=== PATIENT | male | born 1955 | race Caucasian/White ===

== ENCOUNTER → 2022-06-25 12:30 | Outpatient (CLI) | payer MEDICARE, MEDICAID, SELFPAY ==
--- NOTE | 2022-06-25 | DI.ECHO.S_ITS ---
[place] [facility]---------+ [facility] +---------+ : : [address] : : : : [id number] : : : : Phone: [phone]+ Echocardiogram Report + + :Name: GABRIEL CHEEMA Study Date: 06/25/2022 Height: 69 in : :[facility] ReadingLocation: Weight: 235 lb : : Gender: Male BSA: 2.2 m2 : :: 1955 Age: 67 yrs BP: 123/89 mmHg: :Reason For Study: SYSTOLIC HEART FAILURE : :Ordering Physician: VKIAS, : :JAIME Performed By: Guerda Merchant : :Referring: JAIME TRAVIS : + + Interpretation Summary 1) Borderline enlarged left ventricle with moderately reduced systolic function (EF 30-35%). 2) Normal right ventricular size and function. 3) No significant valvular abnormalities. 4) The ascending aorta is mildly enlarged at 4.0cm 5) Sinus rhythm with heart rate 93-101bpm present during the study. 6) Compared to the Echo done 02/18/2022, LVEF has decreased from 40-45% to 30- 35% on this study. Procedure: A two-dimensional transthoracic echocardiogram with color flow and Doppler was performed. The study quality was technically adequate. There is no prior echocardiogram noted for this patient. The patient was in sinus tachycardia with heart rates between 93-101 bpm during the exam. Left Ventricle: The left ventricle is borderline dilated. The estimated left ventricular end diastolic volume is 108 ml. There is normal left ventricular wall thickness. The ejection fraction is estimated to be 30-35%. There is moderate global hypokinesis of the left ventricle. Right Ventricle: The right ventricle is normal in size and function. Atria: The left atrial size is normal. Right atrial size is normal. There is no Doppler evidence for an interatrial shunt. Mitral Valve: The mitral valve is normal in structure and function. There is trace mitral regurgitation. Aortic Valve: The aortic valve is trileaflet. The aortic valve opens well. There is no aortic valve stenosis. No aortic regurgitation is present. Tricuspid Valve: The tricuspid valve is normal in structure and function. There is trace tricuspid regurgitation. Pulmonic Valve: The pulmonic valve leaflets are thin and pliable; valve motion is normal. There is mild pulmonic regurgitation. Great Vessels: The aortic root is normal size. The ascending aorta is mildly enlarged. The IVC is of normal diameter and collapses greater than 50% with a sniff. This suggests a low right atrial pressure of 3 mm Hg. Pericardium/ Pleura There is no pericardial effusion. There is no pleural effusion. MMode/2D Measurements & Calculations LVIDd: 6.2 cm LVOT diam: 2.2 cm LVIDs: 4.7 cm Ao root diam: 3.7 cm FS: 23.5 % asc Aorta Diam: 4.0 cm IVSd: 0.60 cm Ao Arch Diam (Prox Trans): 3.2 cm LVPWd: 0.93 cm LV shannon. diameter/BSA (cm/m^2): 2.8 LV sys. diameter/BSA (cm/m^2): 2.1 LA A2 area: 21.7 cm2 RA long axis: 6.2 cm LA A4 area: 17.0 cm2 RA area: 20.2 cm2 LA length (vol): 5.5 cm RA vol: 56.3 ml LA vol: 56.5 ml RA : 25.5 ml/m2 LA vol index: 25.5 ml/m2 IVC diam: 1.4 cm RVD1 (basal): 3.5 cm RVD2 (mid): 2.9 cm TAPSE: 2.4 cm Doppler Measurements & Calculations Ao V2 max: 125.8 cm/sec LVOT Max Filiberto: 91.6 cm/sec Ao V2 mean: 98.3 cm/sec LV V1 max P.4 mmHg Ao max P.3 mmHg LV V1 VTI: 15.8 cm Ao mean P.1 mmHg THI(I,D): 2.7 cm2 Ao V2 VTI: 22.2 cm THI(V,D): 2.8 cm2 sev ratio: 0.71 THI indexed to BSA (cm^2/m^2): 1.2 MV E max filiberto: 102.0 cm/sec PA V2 max: 96.3 cm/sec MV A max filiberto: 2.5 cm/sec PA V2 mean: 70.1 cm/sec MV E/A: 41.0 PA mean P.1 mmHg MV dec time: 0.13 sec PA pr(Accel): 35.3 mmHg SV(LVOT): 60.3 ml Reading Physician:10:04 AM
== END ==
PROVIDERS: Family Provider Family Medicine; PCP Internal Medicine; Referring Provider Internal Medicine Cardiovascular Disease; Visit Provider Internal Medicine Cardiovascular Disease
DX: I37.1 Nonrheumatic pulmonary valve insufficiency (principal); I50.22 Chronic systolic (congestive) heart failure; I42.8 Other cardiomyopathies; I77.89 Other specified disorders of arteries and arterioles
CPT/HCPCS: 93306

== ENCOUNTER 2022-08-06 22:07 | Inpatient (IN) | payer MEDICARE, MEDICAID, SELFPAY ==
--- NOTE | 2022-08-06 22:15 | DI.RAD.S_ITS ---
PROCEDURE: XR CHEST 1V INDICATIONS: Dyspnea TECHNIQUE: One view of the chest was acquired. COMPARISON: [facility], , CHEST 2 VIEW, 10/01/2015, 13:42. FINDINGS: Surgical changes and devices: None. Lungs and pleura: There are low lung volumes. Bilateral perihilar pulmonary vascular prominence is demonstrated compatible with mild pulmonary edema. There are also bibasilar patchy opacities suggestive of atelectasis or consolidation. No pleural effusions or pneumothorax. Mediastinum: Mediastinal contours appear unchanged. Heart size is normal. Bones and chest wall: No suspicious bony lesions. Overlying soft tissues appear unremarkable. IMPRESSION: 1. Bilateral patchy opacities in the lung bases consistent with atelectasis or consolidation/pneumonia. 2. Suspected mild pulmonary edema. Dictated by: Matthias Wright M.D. on 08/06/2022 at 23:51 Approved by: Matthias Wright M.D. on 08/06/2022 at 23:54
--- NOTE | 2022-08-06 22:17 | ED_ITS ---
HPI - SOB/Dyspnea General Chief Complaint: Shortness of Breath/Dyspnea Stated Complaint: SOB Time Seen by Provider: 08/06/22 22:15 Source: patient and EMS Mode of arrival: EMS Limitations: no limitations History of Present Illness HPI Narrative: Patient brought in by ambulance from home. Complains of dyspnea for the past 1 week and worsened today. Patient is on 3 L continuous oxygen through the day. Patient takes albuterol nebulizing treatments at home. Not DuoNeb. Has been doing these at home without improvement. Denies any cough cold or congestion, however did have brief chest pain prior to arrival. Chest pain now resolved. It was substernal. He states similar to AL in the past.. No fever or chills. Has had pneumonia in the past. Patient has been taking his CHF medications. Has had some swelling of the legs. No pain. Patient received DuoNeb treatment by EMS and feels so much better now. His dyspnea has resolved. Patient is speaking full sentences. In no respiratory distress. Patient sees Dr. Travis with cardiology, affiliated with [facility] Related Data Allergies Allergy/AdvReac Type Severity Reaction Status Date / Time cephalexin [From KEFLEX] Allergy Unknown Unverified 10/28/17 12:36 Penicillins [PENICILLINS] Allergy Unknown Unverified 10/28/17 12:36 Review of Systems Review of Systems Narrative: GENERAL: negative chills, fatigue, malaise, fever, sweats. HEENT: negative sinus pain, ear pain, sore throat RESPIRATORY: Positive dyspnea, negative cough CARDIOVASCULAR: Positive chest pain, negative palpitations, positive peripheral edema GASTROINTESTINAL: negative nausea, vomiting, abdominal pain : negative dysuria, frequency, hematuria MUSCULOSKELETAL: negative muscle or bony pain SKIN: negative rash, skin lesions NEUROLOGIC: negative weakness, numbness ROS Unobtainable: All systems reviewed & are unremarkable except as noted in HPI and below Patient History Social History Smoking Status: Former smoker Exam Narrative Exam Narrative: GENERAL: in no distress, not toxic not dyspneic HEAD: Normocephalic. EYES: Pupils equal round No scleral icterus. ENT: Mucous membranes moist. NECK: Trachea midline. CARDIOVASCULAR: Regular rate and rhythm without murmurs RESPIRATORY: Clear to auscultation. Breath sounds equal bilaterally. No wheezes, rales, or rhonchi. Patient is speaking full sentences. Is on baseline nasal cannula 3 L GASTROINTESTINAL: Abdomen soft, non-tender EXTREMITIES: No gross deformities. There is 2+ bilateral leg and ankle/foot edema. No calf tenderness NEURO: AOx4. SKIN: Warm and dry PSYCH: Not anxious, is cooperative Initial Vital Signs Initial Vital Signs: Vital Signs Temperature 98.3 F 08/06/22 22:38 Pulse Rate 94 H 08/06/22 22:38 Respiratory Rate 20 08/06/22 22:38 Blood Pressure 131/86 08/06/22 22:38 Pulse Oximetry 98 08/06/22 22:38 Oxygen Delivery Method 08/06/22 22:38 Oxygen Flow Rate 3 08/06/22 22:38 Course Orders Ordered: ED Orders 08/06/22 22:15 XR chest 1V Stat EKG-12 Lead Stat 08/06/22 22:30 Covid-19 + FLU A/B + RSV - PCR Stat 08/06/22 23:22 Complete Blood Count AUTO DIFF Stat Comprehensive Metabolic Panel Stat NT-proBNP (BNP-Adult 18+) Stat Partial Thromboplastin Time Stat Prothrombin Time INR Stat Troponin & CK Cardiac Panel Stat 08/07/22 00:32 Blood Culture Stat Acetaminophen (Acetaminophen 325 Mg Tablet) 650 mg PO Q6H PRN PRN Reason: Fever/Mild Pain (1-3) Albuterol (Albuterol 2.5 Mg/3 Ml Neb (Adult)) 2.5 mg INH [id number] PRN PRN Reason: Shortness Of Breath Last Admin: 08/07/22 02:36 Dose: 2.5 mg Documented By: AIDA Albuterol/Ipratropium (Albuterol/Ipratropium 3 Ml Ampul) 3 ml INH [id number] LIDIA Atorvastatin Calcium (Atorvastatin 20 Mg Tablet) 40 mg PO BEDTIME LIDIA Bupropion HCl (Bupropion Xl 150 Mg Tab) 150 mg PO DAILY LIDIA Doxazosin Mesylate (Doxazosin 2 Mg Tablet) 2 mg PO BEDTIME LIDIA Enoxaparin Sodium (Enoxaparin 40 Mg/0.4 Ml Syringe) 40 mg SUBCUT DAILY LIDIA Famotidine (Famotidine 20 Mg Tablet) 20 mg PO DAILY PRN PRN Reason: acid reflux Last Admin: 08/07/22 02:35 Dose: 20 mg Documented By: CHAY Hydrochlorothiazide (Hydrochlorothiazide 25 Mg Tablet) 12.5 mg PO DAILY LIDIA Levofloxacin (Levofloxacin 250 Mg Tablet) 750 mg PO BEDTIME LIDIA Stop: 08/10/22 21:01 Magnesium Hydroxide (Magnesium Hydroxide 30 Ml Udc) 30 ml PO DAILY PRN PRN Reason: Constipation Methylprednisolone (Methylprednisolone 125 Mg/2 Ml Vial) 80 mg IV Q12H LIDIA Last Admin: 08/07/22 02:35 Dose: 80 mg Documented By: CHAY Naloxone HCl (Naloxone 0.4 Mg/Ml Vial) 0.2 mg IV Q2MIN PRN PRN Reason: Opiate Reversal Spironolactone (Spironolactone 25 Mg Tablet) 25 mg PO DAILY LIDIA Discontinued Medications Albuterol/Ipratropium (Albuterol/Ipratropium 3 Ml Ampul) 3 ml INH NOW ONE Stop: 08/07/22 00:57 Last Admin: 08/07/22 00:57 Dose: 3 ml Documented By: AIDA Levofloxacin (Levaquin) 750 mg in 150 mls @ 100 mls/hr IV NOW ONE Stop: 08/07/22 02:01 Last Infusion: 08/07/22 02:15 Dose: 0 mls/hr Documented By: Admin: 08/07/22 00:46 Dose: 100 mls/hr Documented By: VERENICE Vital Signs Vital signs: Vital Signs - 8 hr 08/06/22 22:38 08/06/22 23:55 08/07/22 00:00 Temperature 98.3 F Pulse Rate 94 H 94 H 94 H Respiratory Rate 20 22 22 Blood Pressure 131/86 119/72 119/74 Pulse Oximetry 98 96 96 Oxygen Delivery Method Nasal Cannula Nasal Cannula Nasal Cannula Oxygen Flow Rate 3 58 5 MDM - SOB/Dyspnea Lab Data Result diagrams: 08/06/22 23:22 08/06/22 23:22 Labs: Lab Results 08/06/22 08/06/22 08/06/22 Range/Units 22:30 23:22 23:22 WBC 9.6 (4.5-11.0) X10^3/uL RBC 4.01 L (4.5-5.9) X10^6/uL Hgb 12.9 L (13.5-17.5) g/dL Hct 37.9 L (41-53) % MCV 94.4 (80-100) fL MCH 32.1 (26-34) PG MCHC 34.0 (30-36) % RDW 13.4 (11.6-14.8) % Plt Count 259 (150-400) X10^3/uL Neut % (Auto) 78.1 H (50-75) % Lymph % (Auto) 11.0 L (25-40) % [place] % (Auto) 5.8 (3-14) % Eos % (Auto) 4.7 H (2-4) % Baso % (Auto) 0.4 (0-2) % Neut # (Auto) 7500 H (8766-8116) /uL Lymph # (Auto) 1100 (4002-3155) /uL [place] # (Auto) 600 (0-900) /uL Eos # (Auto) 500 H (0-450) /uL Baso # (Auto) 0 (0-100) /uL PT 14.0 H (10.1-12.7) SECONDS INR 1.2 (0.9-1.3) APTT 30 (26-36) SECONDS Sodium (137-145) mmol/L Potassium (3.4-5.1) mmol/L Chloride (98-107) mmol/L Carbon Dioxide (22-32) mmol/L BUN (9-20) mg/dL Creatinine (0.66-1.25) mg/dL Estimated GFR (>60) mL/min BUN/Creatinine Ratio (6-22) Glucose (80-110) mg/dL Hemoglobin A1c (4.0-6.0) % Calcium (8.4-10.2) mg/dL Total Bilirubin (0.2-1.3) mg/dL AST (17-59) IU/L ALT (<50) IU/L Alkaline Phosphatase (38-126) U/L Total Creatine Kinase (55-170) U/L CK-MB (CK-2) (<2.37) ng/mL CK-MB (CK-2) Rel Index (1.5-5.0) % Troponin I (0.01-0.034) ng/mL NT-Pro-B Natriuret Pep (<125) pg/mL Total Protein (6.3-8.2) g/dL SARS-CoV-2 (PCR) Negative (Negative) Influenza A (RT-PCR) Flu a negative (NEGATIVE) Influenza B (RT-PCR) Flu b negative (NEGATIVE) RSV (PCR) Negative (Negative) 08/06/22 08/06/22 08/06/22 Range/Units 23:22 23:22 23:22 WBC (4.5-11.0) X10^3/uL RBC (4.5-5.9) X10^6/uL Hgb (13.5-17.5) g/dL Hct (41-53) % MCV (80-100) fL MCH (26-34) PG MCHC (30-36) % RDW (11.6-14.8) % Plt Count (150-400) X10^3/uL Neut % (Auto) (50-75) % Lymph % (Auto) (25-40) % [place] % (Auto) (3-14) % Eos % (Auto) (2-4) % Baso % (Auto) (0-2) % Neut # (Auto) (6601-7044) /uL Lymph # (Auto) (7356-3982) /uL [place] # (Auto) (0-900) /uL Eos # (Auto) (0-450) /uL Baso # (Auto) (0-100) /uL PT (10.1-12.7) SECONDS INR (0.9-1.3) APTT (26-36) SECONDS Sodium 135 L (137-145) mmol/L Potassium 4.1 (3.4-5.1) mmol/L Chloride 98 (98-107) mmol/L Carbon Dioxide 29 (22-32) mmol/L BUN 22 H (9-20) mg/dL Creatinine 1.02 (0.66-1.25) mg/dL Estimated GFR > 60 (>60) mL/min BUN/Creatinine Ratio 21.6 (6-22) Glucose 118 H (80-110) mg/dL Hemoglobin A1c 5.7 (4.0-6.0) % Calcium 8.6 (8.4-10.2) mg/dL Total Bilirubin 0.4 (0.2-1.3) mg/dL AST 26 (17-59) IU/L ALT 30 (<50) IU/L Alkaline Phosphatase 61 (38-126) U/L Total Creatine Kinase 292 H (55-170) U/L CK-MB (CK-2) 5.85 H (<2.37) ng/mL CK-MB (CK-2) Rel Index 2.0 (1.5-5.0) % Troponin I < 0.012 (0.01-0.034) ng/mL NT-Pro-B Natriuret Pep 113 (<125) pg/mL Total Protein 7.3 (6.3-8.2) g/dL SARS-CoV-2 (PCR) (Negative) Influenza A (RT-PCR) (NEGATIVE) Influenza B (RT-PCR) (NEGATIVE) RSV (PCR) (Negative) Imaging Data Chest x-ray: Radiologist's Impression: [address] [address] XRay Report Signed Patient: Harmeet Woods MR#: [id number] : 1955 Acct:[id number] Age/Sex: 67 / M Date of Service: 08/06/22 Loc: ED Accession Number: [id number] ?? Procedure: XR chest 1V Ordering Provider: Brannon Urbina MD PROCEDURE:? XR CHEST 1V ? INDICATIONS:? Dyspnea ? TECHNIQUE:? One view of the chest was acquired.? ? COMPARISON:? [facility], , CHEST 2 VIEW, 10/01/2015, 13:42. ? FINDINGS:? ? Surgical changes and devices:? None.? ? Lungs and pleura:? There are low lung volumes.? Bilateral perihilar pulmonary vascular prominence is demonstrated compatible with mild pulmonary edema.? There are also bibasilar patchy opacities suggestive of atelectasis or consolidation.? No pleural effusions or pneumothorax.? ? Mediastinum:? Mediastinal contours appear unchanged.? Heart size is normal.? ? Bones and chest wall:? No suspicious bony lesions.? Overlying soft tissues appear unremarkable.? ? IMPRESSION:? ? 1. Bilateral patchy opacities in the lung bases consistent with atelectasis or consolidation/pneumonia. ? 2. Suspected mild pulmonary edema.? ? ? Dictated by: Matthias Wright M.D. on 08/06/2022 at 23:51 ? ? Approved by: Matthias Wright M.D. on 08/06/2022 at 23:54 ? ECG Data Interpretation: Normal sinus rhythm rate [address] elevation or depression Treatment and disposition Social Determinants of Health that impact treatment or disposition: None MDM Narrative Medical decision making narrative: After exam and evaluation and history, CBC CMP troponin BNP, chest x-ray and EKG have been ordered. Patient at baseline with breathing in no respiratory di stress, DuoNeb has resolved dyspnea, given by EMS. MDM CC: Dyspnea Complicating co-morbidities: COPD/CHF Data collected from: Patient and EMS Medical records reviewed: No previous visits here Differential considered: Includes but not limited to CHF/COPD/pneumonia/asthma Exam documented above, pertinent findings include: Currently clear lung sounds, there is bilateral pedal/calf/leg edema Lab Test results independently reviewed as above. Pertinent findings: Independently reviewed EKG as above Imaging studies independently reviewed: Bilateral patchy infiltrates versus atelectasis/possible consolidation Consultations: 12:35 a[address].. Sp[address] with hospice [address] arzola, will admit Treatments: Levaquin Re-evaluations: 12:30 a.m.. Reviewed results with patient. Patient still feels much better after EMS DuoNeb treatment. Patient does agree for admission for COPD exacerbation/community-acquired pneumonia. Currently no chest pain. Reviewed with him regarding chest pain. It could be related to the pneumonia/COPD exacerbation. However would admit for continued serial cardiac enzymes and possible echocardiogram in the morning Discussion: Appropriate for admission. Will need IV antibiotics and breathing treatments and possible echocardiogram. Will need serial cardiac enzymes. I did review with patient and agrees for admit. Reviewed with hospitalist agrees for admit as well. Diagnosis: COPD exacerbation/community-acquired pneumonia Disposition: Admit Discharge Plan Departure Patient Disposition: Admitted as Observation Clinical Impression: COPD exacerbation, Community acquired pneumonia Admit Date/Time: 08/07/22 00:35 Admit Provider: Rai Arzola
[2022-08-06 22:38] VITALS: BP 131/86; PULSE 94; RESP 20; TEMP 36.8; O2SAT 98; BMI 34.0
[2022-08-06 23:24] LABS: Influenza A - CEPHEID Flu A NEGATIVE (NEGATIVE); Influenza B - CEPHEID Flu B NEGATIVE (NEGATIVE); Respiratory Syncytial Virus Negative (Negative)
[2022-08-06 23:25] LABS: COVID-19 CEPHEID 4-PLEX PCR Negative (Negative)
[2022-08-06 23:39] LABS: INR 1.2 (0.9-1.3)
[2022-08-06 23:40] LABS: Add Manual Diff / Slide Review NO; Basophils Absolute Auto 0 /uL (0-100); Basophils Percent Auto 0.4 % (0-2); Eosinophils Absolute Auto 500 /uL (0-450); Eosinophils Percent Auto 4.7 % (2-4); Hematocrit 37.9 % (41-53); Hemoglobin 12.9 g/dL (13.5-17.5); Lymphocytes Absolute Auto 1100 /uL (1100-4500); Mean Corpuscular Hemoglobin 32.1 PG (26-34); Mean Corpuscular Volume 94.4 fL (80-100); Monocytes Absolute Auto 600 /uL (0-900); Monocytes Percent Auto 5.8 % (3-14); Neutrophils Absolute Auto 7500 /uL (1500-7000); Neutrophils Percent Auto 78.1 % (50-75); Platelet Count 259 X10^3/uL (150-400); Red Blood Cell Count 4.01 X10^6/uL (4.5-5.9); Red Cell Distribution Width 13.4 % (11.6-14.8); White Blood Cell Count 9.6 X10^3/uL (4.5-11.0)
[2022-08-06 23:42] LABS: PTT Partial Thromboplastin Tim 30 SECONDS (26-36)
[2022-08-06 23:55] VITALS: BP 119/72; PULSE 94; RESP 22; O2SAT 96
[2022-08-06 23:56] LABS: Alanine Aminotransferase 30 IU/L (<50); Alkaline Phosphatase 61 U/L (38-126); Aspartate Aminotransferase 26 IU/L (17-59); BUN Creatinine Ratio 21.6 (6-22); Bilirubin Total 0.4 mg/dL (0.2-1.3); Blood Urea Nitrogen 22 mg/dL (9-20); Calcium 8.6 mg/dL (8.4-10.2); Carbon Dioxide 29 mmol/L (22-32); Chloride 98 mmol/L (98-107); Creatine Kinase 292 U/L (55-170); Estimated Glomerular Filt Rate > 60 mL/min (>60); Glucose 118 mg/dL (80-110); HEMOLYSIS < 15 (0-50); Potassium 4.1 mmol/L (3.4-5.1); Sodium 135 mmol/L (137-145); Total Protein 7.3 g/dL (6.3-8.2)
[2022-08-07] VITALS (14 sets, daily range): BP systolic 116–153; BP diastolic 73–98; PULSE 82–107; RESP 20–26; TEMP 36.1–36.3; O2SAT 92–96; BMI 34.0
[2022-08-07 00:05] LABS: NT-proBNP (BNP-Adult 18+) 113 pg/mL (<125)
[2022-08-07 00:08] LABS: Troponin I < 0.012 ng/mL (0.01-0.034)
[2022-08-07 00:11] LABS: Creatine Kinase MB 5.85 ng/mL (<2.37)
[2022-08-07] MEDS: levoFLOXacin 750 MG/150 ML PIGGYBACK 100 MG IV (00:46)
[2022-08-07] MEDS: ALBUTEROL/IPRATROPIUM 3 ML AMPUL INH ×6 (00:57→23:30)
--- NOTE | 2022-08-07 01:28 | P.HP_ITS ---
History of Present Illness History of Present Illness Date Patient Seen: 08/07/22 Time Patient Seen: 00:45 Chief complaint: SOB Narrative: Patient is a 67-year-old male with history of COPD, on chronic home O2, CHF with reduced EF, hypertension, hyperlipidemia, obesity, BPH presented to ED with complaints of shortness of breath for the past 1-2 weeks. He reports increasing dyspnea where he is out of breath at rest and with exertion. He has had a productive cough. He denies fever. He had some chest tightness prior to coming into the ED. he is usually on 2 L O2 during the day and 4 L during the night but 2 weeks ago he increase the daytime O2 to 4 L as well. He states that he has been using nebulizer more frequently as well. Patient sees Dr. Travis for Cardiology. He had echo 06/25/2022 which showed mild enlarged LV, EF 30-35%, normal RV and normal valves. He was recently taken off of irbesartan and started on Entresto and Corlanor. He has noticed a little swelling in the legs since this medication change. He is not on any loop diuretics. States he has been compliant with medications. He last quit smoking in May 2022 with previous 1 pack per day for many years. In ED, vitals were stable with O2 sat 96% on 5 L NC. He has normal WBC and a normal BNP. Chest x-ray personally reviewed and shows bilateral atelectasis versus infiltrate in lung bases and possibly mild pulmonary edema. EKG personally reviewed and shows normal sinus rhythm, possibly old inferior CO, no ST or T-wave abnormality. His COVID, flu and RSV are all negative. Patient History Family & Social History Safety & Behavioral: Feels Safe in Current Yes Environment Been Physically Hurt or No Threatened By a Person Tobacco & Substance use: Smoking Status Former smoker Substance Use Type does not use Meds Home Medications and Allergies Allergies Allergy/AdvReac Type Severity Reaction Status Date / Time cephalexin [From KEFLEX] Allergy Unknown Unverified 10/28/17 12:36 Penicillins [PENICILLINS] Allergy Unknown Unverified 10/28/17 12:36 Review of Systems Review of Systems Narrative: Complete 10 point ROS otherwise negative Exam Vital Signs (past 8 hours): - 08/06/22 22:38 08/06/22 23:55 08/07/22 00:00 Temperature 98.3 F Pulse Rate 94 H 94 H 94 H Respiratory Rate 20 22 22 Blood Pressure 131/86 119/72 119/74 Pulse Oximetry 98 96 96 Oxygen Delivery Method Nasal Cannula Nasal Cannula Nasal Cannula Oxygen Flow Rate 3 58 5 Fraction of Inspired Oxygen 08/07/22 00:57 Temperature Pulse Rate 91 H Respiratory Rate 22 Blood Pressure Pulse Oximetry 96 Oxygen Delivery Method Nasal Cannula Oxygen Flow Rate 5 Fraction of Inspired Oxygen 40 Fraction of Inspired Oxygen 40 SaO2/FiO2 Ratio 240 Oxygen Delivery Method Nasal Cannula Oxygen Flow Rate 5 Narrative Exam Narrative: General: Very pleasant alert male sitting up in ED bed with mild labored breathing HEENT: Pupils equal, anicteric, oropharynx unremarkable Neck: No lymphadenopathy Lungs: Able to speak full sentences, there is bilateral inspiratory and expiratory wheeze Heart: Normal S1 and S2, regular rate and rhythm, no murmur, gallop or rub Abdomen: Central obesity, nondistended, nontender, no HSM Extremities: Trace pretibial edema bilaterally Neurological: Affect normal, speech and thought content normal Objective Labs Result Diagrams: 08/06/22 23:22 08/06/22 23:22 Labs: Laboratory Results - last 24 hr 08/06/22 08/06/22 08/06/22 22:30 23:22 23:22 WBC 9.6 RBC 4.01 L Hgb 12.9 L Hct 37.9 L MCV 94.4 MCH 32.1 MCHC 34.0 RDW 13.4 Plt Count 259 Neut % (Auto) 78.1 H Lymph % (Auto) 11.0 L [place] % (Auto) 5.8 Eos % (Auto) 4.7 H Baso % (Auto) 0.4 Neut # (Auto) 7500 H Lymph # (Auto) 1100 [place] # (Auto) 600 Eos # (Auto) 500 H Baso # (Auto) 0 PT 14.0 H INR 1.2 APTT 30 Sodium Potassium Chloride Carbon Dioxide BUN Creatinine Estimated GFR BUN/Creatinine Ratio Glucose Calcium Total Bilirubin AST ALT Alkaline Phosphatase Total Creatine Kinase CK-MB (CK-2) CK-MB (CK-2) Rel Index Troponin I NT-Pro-B Natriuret Pep Total Protein SARS-CoV-2 (PCR) Negative Influenza A (RT-PCR) Flu a negative Influenza B (RT-PCR) Flu b negative RSV (PCR) Negative 08/06/22 08/06/22 23:22 23:22 WBC RBC Hgb Hct MCV MCH MCHC RDW Plt Count Neut % (Auto) Lymph % (Auto) [place] % (Auto) Eos % (Auto) Baso % (Auto) Neut # (Auto) Lymph # (Auto) [place] # (Auto) Eos # (Auto) Baso # (Auto) PT INR APTT Sodium 135 L Potassium 4.1 Chloride 98 Carbon Dioxide 29 BUN 22 H Creatinine 1.02 Estimated GFR > 60 BUN/Creatinine Ratio 21.6 Glucose 118 H Calcium 8.6 Total Bilirubin 0.4 AST 26 ALT 30 Alkaline Phosphatase 61 Total Creatine Kinase 292 H CK-MB (CK-2) 5.85 H CK-MB (CK-2) Rel Index 2.0 Troponin I < 0.012 NT-Pro-B Natriuret Pep 113 Total Protein 7.3 SARS-CoV-2 (PCR) Influenza A (RT-PCR) Influenza B (RT-PCR) RSV (PCR) Assessment & Plan Assessment & Plan narrative: 1. COPD with exacerbation, chronic hypoxic respiratory failure -presents with dyspnea x2 weeks, wheezing on exam -chest x-ray with possible pneumonia versus atelectasis in bases -Solu-Medrol 80 mg IV b.i.d. -DuoNeb q.i.d., albuterol neb as needed -Levaquin 750 mg q.d. x 5 days -Mucinex 1200 mg b.i.d. per home routine -continue O2 to maintain sat > 90% -patient used to take Symbicort 160-4.5 which he stopped due to recurrent thrush but feels he did better while on that inhaler which we can refill on discharge 2. Possible pneumonia -has productive cough, possible infiltrates on chest x-ray though normal WBC -covered with Levaquin as for COPD 3. Heart failure with reduced EF, without exacerbation -patient with a normal BNP, hilar fullness on chest x-ray not definitive for pulmonary edema, has trace edema in LEs since started on Entresto and Corlanor but overall clinical presentation more typical of COPD -patient has not required loop diuretic therapy at home, sees Dr. Travis for cardiology -recent echo 06/25/2022 showed EF 30-35%, repeat echo at this time not indicated -continue on Entresto, Corlanor, HCTZ, nebivolol, spironolactone and rosuvastatin per home routine 4. BPH -continue doxazosin 2 mg HS per home routine Code status: Full code verified with patient DVT prophylaxis: Enoxaparin Surrogate decision maker: Vladimir Woods, patient's brother Time Spent With Patient Critical Care time: I spent a total of [] minutes of critical care time on this patient's care today; this time is exclusive of procedural time.
[2022-08-07] MEDS: methylPREDNISolone 125 MG/2 ML VIAL 80 MG IV ×2 (02:35→14:15)
[2022-08-07] MEDS: FAMOTIDINE 20 MG TABLET PO (02:35)
[2022-08-07] MEDS: ALBUTEROL 2.5 MG/3 ML NEB (ADULT) INH (02:36)
[2022-08-07 02:41] LABS: Hemoglobin A1C% w Est Avg Glu 5.7 % (4.0-6.0)
[2022-08-07] MEDS: buPROPion XL 150 MG TAB PO (09:21)
[2022-08-07] MEDS: ENOXAPARIN 40 MG/0.4 ML SYRINGE SUBCUT (09:22)
[2022-08-07] MEDS: hydroCHLOROthiazide 25 MG TABLET 12.5 MG PO (09:23)
[2022-08-07] MEDS: SPIRONOLACTONE 25 MG TABLET PO (09:24)
[2022-08-07] MEDS: ACETAMINOPHEN 325 MG TABLET 650 MG PO (09:53)
--- NOTE | 2022-08-07 19:50 | RT ---
Pt asleep at this time. Will attempt administration of scheduled nebs when the pt wakes up.
[2022-08-07] MEDS: BUDESONIDE 0.5 MG/2 ML NEB INH (20:20)
[2022-08-07] MEDS: SACUBITRIL VALSARTAN 1 EACH PO (21:01)
[2022-08-07] MEDS: ATORVASTATIN 20 MG TABLET 40 MG PO (21:02)
[2022-08-07] MEDS: levoFLOXacin 250 MG TABLET 750 MG PO (21:02)
[2022-08-07] MEDS: DOXAZOSIN 2 MG TABLET PO (21:02)
[2022-08-07] MEDS: IVABRADINE 5 MG 5 EACH PO (21:02)
[2022-08-08] VITALS (19 sets, daily range): BP systolic 128–148; BP diastolic 69–84; PULSE 75–107; RESP 18–26; TEMP 36.4–36.8; O2SAT 88–93
[2022-08-08] MEDS: ACETAMINOPHEN 325 MG TABLET 650 MG PO (00:16)
[2022-08-08] MEDS: ALBUTEROL 2.5 MG/3 ML NEB (ADULT) INH (04:13)
[2022-08-08] MEDS: methylPREDNISolone 125 MG/2 ML VIAL 80 MG IV ×2 (05:11→17:09)
[2022-08-08] MEDS: FAMOTIDINE 20 MG TABLET PO (05:11)
[2022-08-08] MEDS: IVABRADINE 5 MG 5 EACH PO ×2 (08:20→21:27)
[2022-08-08] MEDS: ENOXAPARIN 40 MG/0.4 ML SYRINGE SUBCUT (08:20)
[2022-08-08] MEDS: NEBIVOLOL 20 MG 20 EACH PO (08:20)
[2022-08-08] MEDS: SACUBITRIL VALSARTAN 1 EACH PO ×2 (08:20→21:27)
[2022-08-08] MEDS: buPROPion XL 150 MG TAB PO (08:21)
[2022-08-08] MEDS: hydroCHLOROthiazide 25 MG TABLET 12.5 MG PO (08:21)
[2022-08-08] MEDS: SPIRONOLACTONE 25 MG TABLET PO (08:21)
[2022-08-08] MEDS: ALBUTEROL/IPRATROPIUM 3 ML AMPUL INH ×5 (08:47→23:02)
[2022-08-08] MEDS: BUDESONIDE 0.5 MG/2 ML NEB INH ×2 (08:47→19:10)
--- NOTE | 2022-08-08 14:51 | CM.DANOTE ---
Initial DCP Assessment Note Pt is a 67 yo male , resident of [place], arrives w/persistent SOB, history of COPD, on chronic home O2, CHF with reduced EF, hypertension, hyperlipidemia, obesity, BPH PCP: Brannon Hollins and Dagoberto Frances Payer: [facility]/KADIE Reviewed chart, pt discussed in multidisciplinary rounds this morning. Patient expected to discharge home in the next 24-48 hrs depending on improvement of COPD exac w/suspected pneumonia, hx CHF Plan: Anticipate patient will return home upon discharge, close outpatient f/u, transportation TBD KELSIE Pope Discharge Planning/Care Management CM Discharge Assessment Start: 08/08/22 14:43 Freq: Status: Active Protocol: Document 08/08/22 14:43 ABRAHAN (Rec: 08/08/22 14:51 ABRAHAN [id number]) Discharge Planning Assessment Assigned Heel Packer KELSIE Strong DPOA/Assigned Designee Name lamar Seayer Contact Information [phone] Advance Directives? No History Provided By Patient,Medical Record Prior Living Arrangements House Comment Trlr Household Members none Type of transporation used prior to Drives own vehicle admit Independent with ADL's Yes Is patient alert and oriented? Yes Community Services used prior to Oxygen Therapy admission: Comment O2 throughout the day and night Barriers to Discharge No Comment Anticipate home w/resumption of home O2 and close outpatient f/u Discharge Plan Home Transportation Arrangement Self or family Referrals Initiated None needed
--- NOTE | 2022-08-08 16:07 | PM.PN.1 ---
Subjective Subjective Date Patient Seen: 08/08/22 Interval history: This is a 67-year-old male with a past medical history of COPD admitted with acute on chronic respiratory failure secondary to COPD exacerbation. He normally is anywhere between 2 and 4 L at home, but often less than this. Today is of oxygen at rest and continues to feel somewhat improved but certainly decline from his baseline as far as his dyspnea and dyspnea on exertion. He denies cough, chest pain, abdominal pain, nausea, or vomiting today. Exam Vital Signs (past 8 hours): - 08/08/22 09:00 08/08/22 09:34 08/08/22 11:55 Temperature Pulse Rate 101 H 78 Respiratory Rate 22 22 Blood Pressure Pulse Oximetry 93 90 L 90 L Oxygen Delivery Method Nasal Cannula Nasal Cannula Nasal Cannula Oxygen Flow Rate 4 4 4 Fraction of Inspired Oxygen 36 36 08/08/22 14:00 08/08/22 13:00 08/08/22 15:23 Temperature 98.1 F Pulse Rate 93 H 85 Respiratory Rate 18 20 Blood Pressure 128/74 Pulse Oximetry 92 91 92 Oxygen Delivery Method Nasal Cannula Nasal Cannula Oxygen Flow Rate 4 4 4 Fraction of Inspired Oxygen 36 Fraction of Inspired Oxygen 36 SaO2/FiO2 Ratio 255 Oxygen Delivery Method Nasal Cannula Oxygen Flow Rate 4 Narrative Exam Narrative: General: Very pleasant alert male sitting up hospital bed, no acute distress HEENT: Pupils equal, anicteric, oropharynx unremarkable Neck: No lymphadenopathy Lungs: Able to speak full sentences, there is bilateral inspiratory and expiratory wheeze Heart: Normal S1 and S2, regular rate and rhythm, no murmur, gallop or rub Abdomen: Central obesity, nondistended, nontender, no HSM Extremities: Trace pretibial edema bilaterally, no joint effusions Neurological: Affect normal, speech and thought content normal Objective Labs Result Diagrams: 08/06/22 23:22 08/06/22 23:22 [facility] Social History household members: none Smoking Status: Former smoker Assessment & Plan Assessment & Plan narrative: 1. COPD with exacerbation, acute on chronic hypoxic respiratory failure with possible community acquired pneumonia -presents with dyspnea x2 weeks, wheezing on exam -chest x-ray with possible pneumonia versus atelectasis in bases -Solu-Medrol 80 mg IV b.i.d. -DuoNeb q.i.d., albuterol neb as needed -Levaquin 750 mg q.d. x 5 days -Mucinex 1200 mg b.i.d. per home routine -continue O2 to maintain sat > 89% -patient used to take Symbicort 160-4.5 which he stopped due to recurrent thrush but feels he did better while on that inhaler which we can refill on discharge 2. Possible pneumonia -has productive cough, possible infiltrates on chest x-ray though normal WBC -covered with Levaquin as for COPD 3. Heart failure with reduced EF, without exacerbation -patient with a normal BNP, hilar fullness on chest x-ray not definitive for pulmonary edema, has trace edema in LEs since started on Entresto and Corlanor but overall clinical presentation more typical of COPD -patient has not required loop diuretic therapy at home, sees Dr. Travis for cardiology -recent echo 06/25/2022 showed EF 30-35%, repeat echo at this time not indicated -continue on Entresto, Corlanor, HCTZ, nebivolol, spironolactone and rosuvastatin per home routine 4. BPH -continue doxazosin 2 mg HS per home routine Code status: Full code verified with patient DVT prophylaxis: Enoxaparin Surrogate decision maker: Vladimir Woods, patient's brother Time Spent With Patient Critical Care time: I spent a total of [] minutes of critical care time on this patient's care today; this time is exclusive of procedural time.
[2022-08-08 16:24] LABS: Albumin 4.1 g/dL (3.5-5.0); Albumin Globulin Ratio 1.3 (1.0-2.8); Globulin 3.2 g/dL (1.7-4.1)
[2022-08-08] MEDS: levoFLOXacin 250 MG TABLET 750 MG PO (21:22)
[2022-08-08] MEDS: ATORVASTATIN 20 MG TABLET 40 MG PO (21:22)
[2022-08-08] MEDS: DOXAZOSIN 2 MG TABLET PO (21:22)
[2022-08-09] VITALS (18 sets, daily range): BP systolic 103–130; BP diastolic 70–86; PULSE 68–99; RESP 18–24; TEMP 35.9–36.6; O2SAT 4–98
[2022-08-09] MEDS: ALBUTEROL 2.5 MG/3 ML NEB (ADULT) INH (01:53)
[2022-08-09] MEDS: FAMOTIDINE 20 MG TABLET PO ×3 (02:10→20:35)
[2022-08-09] MEDS: methylPREDNISolone 125 MG/2 ML VIAL 80 MG IV ×2 (05:38→17:04)
[2022-08-09 05:52] LABS: Add Manual Diff / Slide Review NO; Basophils Absolute Auto 0 /uL (0-100); Eosinophils Absolute Auto 0 /uL (0-450); Hematocrit 38.5 % (41-53); Hemoglobin 12.8 g/dL (13.5-17.5); Lymphocytes Absolute Auto 800 /uL (1100-4500); Lymphocytes Percent Auto 6.4 % (25-40); Mean Corpuscular HGB Conc 33.3 % (30-36); Mean Corpuscular Hemoglobin 31.5 PG (26-34); Mean Corpuscular Volume 94.7 fL (80-100); Monocytes Absolute Auto 900 /uL (0-900); Monocytes Percent Auto 7.3 % (3-14); Neutrophils Absolute Auto 10500 /uL (1500-7000); Neutrophils Percent Auto 86.3 % (50-75); Platelet Count 275 X10^3/uL (150-400); Red Blood Cell Count 4.07 X10^6/uL (4.5-5.9); Red Cell Distribution Width 13.4 % (11.6-14.8); White Blood Cell Count 12.2 X10^3/uL (4.5-11.0)
[2022-08-09 06:08] LABS: BUN Creatinine Ratio 38.8 (6-22); Blood Urea Nitrogen 33 mg/dL (9-20); Calcium 8.2 mg/dL (8.4-10.2); Carbon Dioxide 31 mmol/L (22-32); Chloride 92 mmol/L (98-107); Estimated Glomerular Filt Rate > 60 mL/min (>60); Glucose 115 mg/dL (80-110); HEMOLYSIS < 15 (0-50); Magnesium 2.1 mg/dL (1.6-2.3); Potassium 4.3 mmol/L (3.4-5.1); Sodium 130 mmol/L (137-145)
[2022-08-09] MEDS: SPIRONOLACTONE 25 MG TABLET PO (09:02)
[2022-08-09] MEDS: NEBIVOLOL 20 MG 20 EACH PO (09:02)
[2022-08-09] MEDS: SACUBITRIL VALSARTAN 1 EACH PO ×2 (09:02→21:33)
[2022-08-09] MEDS: hydroCHLOROthiazide 25 MG TABLET 12.5 MG PO (09:02)
[2022-08-09] MEDS: IVABRADINE 5 MG 5 EACH PO ×2 (09:02→21:33)
[2022-08-09] MEDS: ENOXAPARIN 40 MG/0.4 ML SYRINGE SUBCUT (09:03)
[2022-08-09] MEDS: buPROPion XL 150 MG TAB PO (09:04)
[2022-08-09] MEDS: ACETAMINOPHEN 325 MG TABLET 650 MG PO (09:08)
[2022-08-09] MEDS: ALBUTEROL/IPRATROPIUM 3 ML AMPUL INH ×3 (09:10→17:01)
[2022-08-09] MEDS: BUDESONIDE 0.5 MG/2 ML NEB INH ×2 (09:10→19:59)
--- NOTE | 2022-08-09 12:09 | P.PN_ITS ---
Subjective Subjective Date Patient Seen: 08/09/22 Interval history: This is a 67-year-old male with a past medical history of COPD admitted with acute on chronic respiratory failure secondary to COPD exacerbation. He normally is anywhere between 2 and 4 L at home, but often less than this. Today is on 2-3 L oxygen at rest and continues to feel somewhat improved but certainly declined from his baseline as far as his dyspnea and dyspnea on exertion. He denies cough, chest pain, abdominal pain, nausea, or vomiting today. he does feel some congestion in his chest. Exam Vital Signs (past 8 hours): - 08/09/22 05:00 08/09/22 07:00 08/09/22 09:10 Temperature 96.7 F L Pulse Rate 84 92 H Respiratory Rate 19 22 Blood Pressure 119/71 Pulse Oximetry 90 L 92 91 Oxygen Delivery Method Nasal Cannula Nasal Cannula Oxygen Flow Rate 3 3 2 08/09/22 10:04 08/09/22 10:04 Temperature Pulse Rate Respiratory Rate Blood Pressure Pulse Oximetry 89 L Oxygen Delivery Method Nasal Cannula Nasal Cannula Oxygen Flow Rate 3 Fraction of Inspired Oxygen 36 SaO2/FiO2 Ratio 255 Oxygen Delivery Method Nasal Cannula Oxygen Flow Rate 3 Narrative Exam Narrative: General: Very pleasant alert male sitting up hospital bed, no acute distress HEENT: Pupils equal, anicteric, oropharynx unremarkable Neck: No lymphadenopathy Lungs: Able to speak full sentences, there is bilateral inspiratory and expiratory wheeze Heart: Normal S1 and S2, regular rate and rhythm, no murmur, gallop or rub Abdomen: Central obesity, nondistended, nontender, no HSM Extremities: Trace pretibial edema bilaterally, no joint effusions Neurological: Affect normal, speech and thought content normal Objective Labs Result Diagrams: 08/09/22 04:50 08/09/22 04:50 Labs: Laboratory Results - last 24 hr 08/06/22 08/09/22 08/09/22 23:22 04:50 04:50 WBC 12.2 H RBC 4.07 L Hgb 12.8 L Hct 38.5 L MCV 94.7 MCH 31.5 MCHC 33.3 RDW 13.4 Plt Count 275 Neut % (Auto) 86.3 H Lymph % (Auto) 6.4 L [place] % (Auto) 7.3 Eos % (Auto) 0.0 L Baso % (Auto) 0.0 Neut # (Auto) 59086 H Lymph # (Auto) 800 L [place] # (Auto) 900 Eos # (Auto) 0 Baso # (Auto) 0 Sodium 130 L Potassium 4.3 Chloride 92 L Carbon Dioxide 31 BUN 33 H Creatinine 0.85 Estimated GFR > 60 BUN/Creatinine Ratio 38.8 H Glucose 115 H Calcium 8.2 L Magnesium 2.1 Albumin 4.1 Globulin 3.2 Albumin/Globulin Ratio 1.3 [facility] Social History household members: none Smoking Status: Former smoker Assessment & Plan Assessment & Plan narrative: 1. COPD with exacerbation, acute on chronic hypoxic respiratory failure with possible community acquired pneumonia -presents with dyspnea x2 weeks, wheezing on exam -chest x-ray with possible pneumonia versus atelectasis in bases -Solu-Medrol 80 mg IV b.i.d., start to taper tomorrow. -DuoNeb q.i.d., albuterol neb as needed -Levaquin 750 mg q.d. x 5 days -Mucinex 1200 mg b.i.d. per home routine -continue O2 to maintain sat > 89% -patient used to take Symbicort 160-4.5 which he stopped due to recurrent thrush but feels he did better while on that inhaler which we can refill on discharge 2. Possible pneumonia -has productive cough, possible infiltrates on chest x-ray though normal WBC -covered with Levaquin as for COPD 3. Heart failure with reduced EF, without exacerbation -patient with a normal BNP, hilar fullness on chest x-ray not definitive for pulmonary edema, has trace edema in LEs since started on Entresto and Corlanor but overall clinical presentation more typical of COPD -patient has not required loop diuretic therapy at home, sees Dr. Travis for cardiology -recent echo 06/25/2022 showed EF 30-35%, repeat echo at this time not indicated -continue on Entresto, Corlanor, HCTZ, nebivolol, spironolactone and rosuvastatin per home routine 4. BPH -continue doxazosin 2 mg HS per home routine Code status: Full code verified with patient DVT prophylaxis: Enoxaparin Surrogate decision maker: Vladimir Woods, patient's brother Time Spent With Patient Critical Care time: I spent a total of [] minutes of critical care time on this patient's care today; this time is exclusive of procedural time.
[2022-08-09] MEDS: guaiFENesin ER 600 MG TAB 1200 MG PO ×2 (12:23→21:32)
--- NOTE | 2022-08-09 14:39 | CM.DPNOTE ---
DCP Note Met w/patient to review DCP. 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 Discussed HH RN and patient feels this would be helpful to him. Patient lives in [place]; reviewed MCR choice list to include [facility] and [facility], patient has no agency preference Placed call to [facility] to discuss referral, spoke w/Kay. faxed referral to include demo sheet, H+P, prog note, completed F2F and HH order Plan: DC home expected w/in 24 hrs, family to transport, [facility] RN, resumption of home O2 JW
[2022-08-09] MEDS: ATORVASTATIN 20 MG TABLET 40 MG PO (21:32)
[2022-08-09] MEDS: levoFLOXacin 250 MG TABLET 750 MG PO (21:32)
[2022-08-09] MEDS: DOXAZOSIN 2 MG TABLET PO (21:32)
[2022-08-09] MEDS: SODIUM CHLORIDE 0.9% FLUSH 10 ML IV (21:34)
[2022-08-10] VITALS (15 sets, daily range): BP systolic 124–133; BP diastolic 78–88; PULSE 74–89; RESP 16–20; TEMP 36.1–36.4; O2SAT 90–95
[2022-08-10] MEDS: ALBUTEROL/IPRATROPIUM 3 ML AMPUL INH ×6 (00:27→23:19)
[2022-08-10] MEDS: ALBUTEROL 2.5 MG/3 ML NEB (ADULT) INH (03:23)
[2022-08-10] MEDS: methylPREDNISolone 125 MG/2 ML VIAL 80 MG IV (05:19)
[2022-08-10 05:56] LABS: Add Manual Diff / Slide Review NO; Basophils Absolute Auto 0 /uL (0-100); Basophils Percent Auto 0.1 % (0-2); Eosinophils Absolute Auto 0 /uL (0-450); Hematocrit 37.4 % (41-53); Hemoglobin 12.8 g/dL (13.5-17.5); Lymphocytes Absolute Auto 800 /uL (1100-4500); Lymphocytes Percent Auto 8.1 % (25-40); Mean Corpuscular HGB Conc 34.3 % (30-36); Mean Corpuscular Hemoglobin 32.1 PG (26-34); Mean Corpuscular Volume 93.7 fL (80-100); Monocytes Absolute Auto 700 /uL (0-900); Monocytes Percent Auto 6.9 % (3-14); Neutrophils Absolute Auto 8800 /uL (1500-7000); Neutrophils Percent Auto 84.9 % (50-75); Platelet Count 249 X10^3/uL (150-400); Red Blood Cell Count 3.99 X10^6/uL (4.5-5.9); Red Cell Distribution Width 13.6 % (11.6-14.8); White Blood Cell Count 10.4 X10^3/uL (4.5-11.0)
[2022-08-10 06:04] LABS: BUN Creatinine Ratio 39.5 (6-22); Blood Urea Nitrogen 30 mg/dL (9-20); Carbon Dioxide 29 mmol/L (22-32); Chloride 94 mmol/L (98-107); Estimated Glomerular Filt Rate > 60 mL/min (>60); Glucose 111 mg/dL (80-110); HEMOLYSIS < 15 (0-50); Magnesium 2.2 mg/dL (1.6-2.3); Sodium 132 mmol/L (137-145)
[2022-08-10] MEDS: BUDESONIDE 0.5 MG/2 ML NEB INH ×2 (07:27→19:24)
[2022-08-10] MEDS: ACETAMINOPHEN 325 MG TABLET 650 MG PO (07:56)
[2022-08-10] MEDS: hydroCHLOROthiazide 25 MG TABLET 12.5 MG PO (08:00)
[2022-08-10] MEDS: SACUBITRIL VALSARTAN 1 EACH PO ×2 (08:01→20:41)
[2022-08-10] MEDS: buPROPion XL 150 MG TAB PO (08:01)
[2022-08-10] MEDS: IVABRADINE 5 MG 5 EACH PO ×2 (08:01→20:41)
[2022-08-10] MEDS: guaiFENesin ER 600 MG TAB 1200 MG PO ×2 (08:01→20:40)
[2022-08-10] MEDS: ENOXAPARIN 40 MG/0.4 ML SYRINGE SUBCUT (08:01)
[2022-08-10] MEDS: NEBIVOLOL 20 MG 20 EACH PO (08:01)
[2022-08-10] MEDS: SPIRONOLACTONE 25 MG TABLET PO (08:01)
[2022-08-10] MEDS: SODIUM CHLORIDE 0.9% FLUSH 10 ML IV ×2 (08:02→17:05)
--- NOTE | 2022-08-10 12:11 | PM.PN.1 ---
Subjective Subjective Date Patient Seen: 08/10/22 Interval history: This is a 67-year-old male with a past medical history of COPD admitted with acute on chronic respiratory failure secondary to COPD exacerbation.? He normally is anywhere between 2 and 4 L at home, but often less than this. Today is 2 liters/minute at rest however when becomes active, even with increasing to 4 liters/minute the patient's O2 saturation often dips down to the mid 80s. Also having problems at night with the crease O2 saturation. Chest does not feel normal yet per patient. Exam Vital Signs (past 8 hours): - 08/10/22 06:00 08/10/22 07:29 08/10/22 07:44 Temperature Pulse Rate Respiratory Rate Blood Pressure Pulse Oximetry 90 L 91 Oxygen Delivery Method Nasal Cannula Room Air Nasal Cannula Oxygen Flow Rate 2 2 08/10/22 07:00 08/10/22 10:24 08/10/22 11:38 Temperature 97.1 F L Pulse Rate 83 85 Respiratory Rate 20 18 Blood Pressure 133/82 Pulse Oximetry 94 92 95 Oxygen Delivery Method Nasal Cannula Nasal Cannula Oxygen Flow Rate 3 2 2 Fraction of Inspired Oxygen 36 SaO2/FiO2 Ratio 255 Oxygen Delivery Method Nasal Cannula Oxygen Flow Rate 2 Narrative Exam Narrative: General:? Very pleasant alert male sitting up hospital bed, no acute distress HEENT:? Pupils equal, anicteric, oropharynx unremarkable Neck:? No lymphadenopathy Lungs:? Able to speak full sentences, there is bilateral inspiratory and expiratory wheeze throughout the lung [place]. Heart:? Normal S1 and S2, regular rate and rhythm, no murmur, gallop or rub Abdomen:? Central obesity, nondistended, nontender, no HSM Extremities:? Trace edema bilaterally, no joint effusions Neurological:? Affect normal, speech and thought content normal Objective Labs Result Diagrams: 08/10/22 05:19 08/10/22 05:19 Labs: Laboratory Results - last 24 hr 08/10/22 08/10/22 05:19 05:19 WBC 10.4 RBC 3.99 L Hgb 12.8 L Hct 37.4 L MCV 93.7 MCH 32.1 MCHC 34.3 RDW 13.6 Plt Count 249 Neut % (Auto) 84.9 H Lymph % (Auto) 8.1 L [place] % (Auto) 6.9 Eos % (Auto) 0.0 L Baso % (Auto) 0.1 Neut # (Auto) 8800 H Lymph # (Auto) 800 L [place] # (Auto) 700 Eos # (Auto) 0 Baso # (Auto) 0 Sodium 132 L Potassium 4.0 Chloride 94 L Carbon Dioxide 29 BUN 30 H Creatinine 0.76 Estimated GFR > 60 BUN/Creatinine Ratio 39.5 H Glucose 111 H Calcium 8.0 L Magnesium 2.2 PFSH Social History household members: none Smoking Status: Former smoker Assessment & Plan Assessment & Plan narrative: 1. COPD with exacerbation, acute on chronic hypoxic respiratory failure with possible community acquired pneumonia -presents with dyspnea x2 weeks, wheezing on exam -chest x-ray with possible pneumonia versus atelectasis in bases -Solu-Medrol 80 mg IV b.i.d., start to taper, will decrease to Solu-Medrol 60 mg IV b.i.d. today. -DuoNeb q.i.d., albuterol neb as needed -Levaquin 750 mg q.d. x 5 days -Mucinex 1200 mg b.i.d. per home routine -continue O2 to maintain sat > 89% -patient used to take Symbicort 160-4.5 which he stopped due to recurrent thrush but feels he did better while on that inhaler which we can refill on discharge 2. Possible pneumonia -has productive cough, possible infiltrates on chest x-ray though normal WBC -covered with Levaquin as for COPD 3. Heart failure with reduced EF, without exacerbation -patient with a normal BNP, hilar fullness on chest x-ray not definitive for pulmonary edema, has trace edema in LEs since started on Entresto and Corlanor but overall clinical presentation more typical of COPD -patient has not required loop diuretic therapy at home, sees Dr. Travis for cardiology -recent echo 06/25/2022 showed EF 30-35%, repeat echo at this time not indicated -continue on Entresto, Corlanor, HCTZ, nebivolol, spironolactone and rosuvastatin per home routine 4. BPH -continue doxazosin 2 mg HS per home routine 5. Elevated BUN consistent with dehydration. Provide intravenous fluids to help hydrate. Follow labs and clinically. Code status: Full code verified with patient DVT prophylaxis:? Enoxaparin Surrogate decision maker:? Vladimir Woods, patient's brother Time Spent With Patient Critical Care time: I spent a total of [] minutes of critical care time on this patient's care today; this time is exclusive of procedural time.
--- NOTE | 2022-08-10 12:26 | CM.DPC ---
DCP/Continued: Reviewed chart. Per provider patient medically not stable to discharge today. Patient currently weaning off of IV steriods. INCLUSION INTERN placed call to [facility] to noitify them that patient will not be discharging today spoke with Sayra and she confirms that they have everything they need except d/c summary. P: D/C summary to be faxed to [facility] at [phone]. KELSIE Arango
[2022-08-10] MEDS: SODIUM CHLORIDE 0.9% 1,000 ML 84 ML IV (12:50)
[2022-08-10] MEDS: FAMOTIDINE 20 MG TABLET PO (13:21)
[2022-08-10] MEDS: MAG HYDROX/ALUM/SIMETH 30 ML UDC PO (13:33)
[2022-08-10] MEDS: methylPREDNISolone 125 MG/2 ML VIAL 60 MG IV (17:03)
[2022-08-10] MEDS: levoFLOXacin 250 MG TABLET 750 MG PO (20:37)
[2022-08-10] MEDS: DOXAZOSIN 2 MG TABLET PO (20:38)
[2022-08-10] MEDS: ATORVASTATIN 20 MG TABLET 40 MG PO (20:40)
[2022-08-11] VITALS (14 sets, daily range): BP systolic 113–147; BP diastolic 72–94; PULSE 76–95; RESP 18–20; TEMP 36–36.5; O2SAT 91–97
[2022-08-11] MEDS: SODIUM CHLORIDE 0.9% 1,000 ML 84 ML IV (00:38)
[2022-08-11] MEDS: MAG HYDROX/ALUM/SIMETH 30 ML UDC PO ×3 (00:45→20:19)
[2022-08-11] MEDS: ALBUTEROL 2.5 MG/3 ML NEB (ADULT) INH (04:23)
[2022-08-11] MEDS: methylPREDNISolone 125 MG/2 ML VIAL 60 MG IV (05:23)
[2022-08-11 05:45] LABS: Add Manual Diff / Slide Review NO; Basophils Absolute Auto 0 /uL (0-100); Basophils Percent Auto 0.1 % (0-2); Eosinophils Absolute Auto 0 /uL (0-450); Hematocrit 36.5 % (41-53); Hemoglobin 12.4 g/dL (13.5-17.5); Lymphocytes Absolute Auto 1100 /uL (1100-4500); Mean Corpuscular Volume 94.2 fL (80-100); Monocytes Absolute Auto 1000 /uL (0-900); Monocytes Percent Auto 9.1 % (3-14); Neutrophils Absolute Auto 8700 /uL (1500-7000); Neutrophils Percent Auto 80.8 % (50-75); Platelet Count 249 X10^3/uL (150-400); Red Blood Cell Count 3.87 X10^6/uL (4.5-5.9); Red Cell Distribution Width 13.4 % (11.6-14.8); White Blood Cell Count 10.8 X10^3/uL (4.5-11.0)
[2022-08-11 06:01] LABS: BUN Creatinine Ratio 38.7 (6-22); Blood Urea Nitrogen 29 mg/dL (9-20); Calcium 7.9 mg/dL (8.4-10.2); Carbon Dioxide 29 mmol/L (22-32); Chloride 95 mmol/L (98-107); Estimated Glomerular Filt Rate > 60 mL/min (>60); Glucose 108 mg/dL (80-110); HEMOLYSIS < 15 (0-50); Magnesium 2.4 mg/dL (1.6-2.3); Potassium 4.1 mmol/L (3.4-5.1); Sodium 131 mmol/L (137-145)
[2022-08-11] MEDS: ALBUTEROL/IPRATROPIUM 3 ML AMPUL INH ×5 (07:34→22:59)
[2022-08-11] MEDS: BUDESONIDE 0.5 MG/2 ML NEB INH ×2 (07:34→19:31)
[2022-08-11] MEDS: ACETAMINOPHEN 325 MG TABLET 650 MG PO (08:02)
[2022-08-11] MEDS: buPROPion XL 150 MG TAB PO (09:12)
[2022-08-11] MEDS: guaiFENesin ER 600 MG TAB 1200 MG PO ×2 (09:12→20:18)
[2022-08-11] MEDS: ENOXAPARIN 40 MG/0.4 ML SYRINGE SUBCUT (09:12)
[2022-08-11] MEDS: hydroCHLOROthiazide 25 MG TABLET 12.5 MG PO (09:13)
[2022-08-11] MEDS: SPIRONOLACTONE 25 MG TABLET PO (09:13)
[2022-08-11] MEDS: SODIUM CHLORIDE 0.9% FLUSH 10 ML IV ×2 (09:14→20:16)
[2022-08-11] MEDS: NEBIVOLOL 20 MG 20 EACH PO (09:17)
[2022-08-11] MEDS: IVABRADINE 5 MG 5 EACH PO (09:17)
[2022-08-11] MEDS: SACUBITRIL VALSARTAN 1 EACH PO (09:19)
--- NOTE | 2022-08-11 12:56 | PM.CN ---
History of Present Illness Consult details Date Patient Seen: 08/11/22 Time Patient Seen: 12:56 Chief complaint: SOB Narrative: This is a 67-year-old male with a past medical history of HFrEF, HTN, HLD obesity, BPH, COPD admitted with acute on chronic respiratory failure secondary to COPD exacerbation.? Patient normally uses 2-1/2 L during the day and 4 L at night, he has had multiple pulmonary function testing, has albuterol nebulizer and Spiriva at home. At the time of admit the patient was requiring 5-6 L and was unable to catch his breath and failed home interventions. He was initially started on Levaquin for possible pneumonia, patient has not demonstrated a white count He currently is resting in bed states that his shortness of breath is now at baseline, on 2 L, he no longer feels much chest congestion, patient converses easily coughs only once during exam, only mild left foot nonpitting edema noted, he reports his cough is improved, he is producing less sputum, and overall feels ready to be discharged home. Patient notes that he had been smoking for 45 years and quit July 21, 2022. He denies chest pain, abdominal pain, nausea, fever, body aches, chills or vomiting today. Meds Home Medications and Allergies Home Medications Medication Instructions Recorded Confirmed Type albuterol sulfate 2.5 mg/3 mL 08/07/22 08/07/22 History (0.083 %) solution for nebulization albuterol sulfate 90 mcg/actuation 08/07/22 08/07/22 History aerosol inhaler aspirin 81 mg capsule 81 mg PO DAILY 08/07/22 08/07/22 History budesonide-formoterol HFA 160 2 puff inhalation BID 08/07/22 08/07/22 History mcg-4.5 mcg/actuation aerosol inhaler bupropion HCl 150 mg 24 hr tablet, 150 mg PO DAILY 08/07/22 08/07/22 History extended release doxazosin 2 mg tablet 2 mg PO BEDTIME 08/07/22 08/07/22 History famotidine 20 mg tablet 20 mg PO BEDTIME PRN Heartburn 08/07/22 08/07/22 History fluticasone propionate 50 1 spray intranasal BID 08/07/22 08/07/22 History mcg/actuation nasal spray,suspension guaifenesin 1,200 mg tablet, 1,200 mg PO BID 08/07/22 08/07/22 History extended release 12 hr hydrochlorothiazide 12.5 mg tablet 12.5 mg PO DAILY 08/07/22 08/07/22 History ivabradine 5 mg tablet (Corlanor) 5 mg PO BID 08/07/22 08/07/22 History nebivolol 20 mg tablet 20 mg PO DAILY 08/07/22 08/07/22 History rosuvastatin 10 mg tablet 10 mg PO DAILY 08/07/22 08/07/22 History sacubitril 24 mg-valsartan 26 mg 1 tab PO BID 08/07/22 08/07/22 History tablet (Entresto) spironolactone 25 mg tablet 25 mg PO DAILY 08/07/22 08/07/22 History tiotropium bromide 18 mcg capsule See Rx Instructions .Route 08/07/22 08/09/22 History with inhalation device (Spiriva .COMPLEX PRN Bronchospasm with HandiHaler) Allergies Allergy/AdvReac Type Severity Reaction Status Date / Time cephalexin [From KEFLEX] Allergy Intermediate Hives Verified 08/08/22 15:39 Penicillins [PENICILLINS] Allergy Intermediate Hives Verified 08/08/22 15:39 Review of Systems Review of Systems Narrative: All 12 point systems reviewed with the patient and are negative except otherwise documented. Exam Vital Signs (past 8 hours): - 08/11/22 05:32 08/11/22 07:37 08/11/22 08:43 Temperature 96.8 F L Pulse Rate 79 Respiratory Rate 20 Blood Pressure 147/94 H Pulse Oximetry 92 92 94 Oxygen Delivery Method Nasal Cannula Nasal Cannula Oxygen Flow Rate 2 2.5 2 Fraction of Inspired Oxygen 08/11/22 07:00 08/11/22 10:32 Temperature Pulse Rate 95 H Respiratory Rate 20 Blood Pressure Pulse Oximetry 91 Oxygen Delivery Method Nasal Cannula Nasal Cannula Oxygen Flow Rate 3 Fraction of Inspired Oxygen 32 Fraction of Inspired Oxygen 32 SaO2/FiO2 Ratio 284 Oxygen Delivery Method Nasal Cannula Oxygen Flow Rate 3 Narrative Exam Narrative: Very pleasant alert male sitting up resting comfortably in bed, without labored breathing, or distress HEENT:? Pupils equal, anicteric, oropharynx unremarkable Neck:? No lymphadenopathy Lungs:? Able to speak full sentences, there is bilateral inspiratory and expiratory wheeze throughout all lobes, equal with slightly decreased bases Heart:? Normal S1 and S2, regular rate and rhythm, no murmur, gallop or rub Abdomen:? Central obesity, nondistended, nontender, no HSM Extremities:? Trace left foot edema, pedal pulses intact Neurological:? Affect normal, speech and thought content normal Objective Labs Result Diagrams: 08/11/22 05:08 08/11/22 05:08 Labs: Laboratory Results - last 24 hr 08/11/22 08/11/22 05:08 05:08 WBC 10.8 RBC 3.87 L Hgb 12.4 L Hct 36.5 L MCV 94.2 MCH 32.0 MCHC 34.0 RDW 13.4 Plt Count 249 Neut % (Auto) 80.8 H Lymph % (Auto) 10.0 L [place] % (Auto) 9.1 Eos % (Auto) 0.0 L Baso % (Auto) 0.1 Neut # (Auto) 8700 H Lymph # (Auto) 1100 [place] # (Auto) 1000 H Eos # (Auto) 0 Baso # (Auto) 0 Sodium 131 L Potassium 4.1 Chloride 95 L Carbon Dioxide 29 BUN 29 H Creatinine 0.75 Estimated GFR > 60 BUN/Creatinine Ratio 38.7 H Glucose 108 Calcium 7.9 L Magnesium 2.4 H PFSH Medical History (Updated 08/11/22 @ 13:37 [facility] Acute and chronic respiratory failure ([id number]) COPD (chronic obstructive pulmonary disease) HFrEF (heart failure with reduced ejection fraction) HLD (hyperlipidemia) Obesity Tobacco abuse, in remission Social History household members: none Tobacco & Substance Use Smoking Status: Former smoker Assessment & Plan Assessment & Plan narrative: 1. COPD with exacerbation, with acute on chronic hypoxic respiratory failure, present on admission-resolved -patient did ambulation trial with RN pulse ox >88% on 3 L nasal cannula, patient tolerated well with mild dyspnea patient's baseline-expect that patient can be discharged tomorrow. -patient's cough has generally resolved, states that his shortness of breath is returned to baseline, no edema or fluid overload noted, patient is speaking in complete in full sentences without shortness of breath or cough -have stopped IV Solu-Medrol (5days) as he has been on it less than 12 days does not require taper- switch him to prednisone 60 mg oral tomorrow-provide discharge prescription of 40 mg for 3 additional days. -ordered PT/OT evaluation for discharge -DuoNeb q.i.d., albuterol neb as needed -Completed -Levaquin 750 mg q.d. x 5 days -Mucinex 1200 mg b.i.d. 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 -do not find patient to have pneumonia, blood cultures negative, no sputum cultures were collected white cell count remains normal, we will repeat labs in a.m.-has also completed Levaquin treatment. 2. Heart failure with reduced EF, without exacerbation, chronic, present on admission -patient with a normal BNP, hilar fullness on chest x-ray not definitive for pulmonary edema, has trace edema in LEs since started on Entresto and Corlanor but overall clinical presentation more typical of COPD -patient has not required loop diuretic therapy at home, sees Dr. Travis for cardiology -recent echo 06/25/2022 showed EF 30-35%, repeat echo at this time not indicated -continue on Entresto, Corlanor, HCTZ, nebivolol, spironolactone and rosuvastatin per home routine 3. Hypertension, essential, chronic, present on admission -continue Entresto, Corlanor, HCTZ, nebivolol, spironolactone 4. BPH -continue doxazosin 2 mg HS per home routine 5. Hyperlipidemia, chronic, present on admission -continue rosuvastatin 6. obesity, mild, acute on chronic, present on admission -is evidence by BMI of 34.7 -dietary consult ordered regarding nutritional education and information for dietary, lifestyle, exercise, and weight changes. -the patient is at much higher risk for medical and surgical complications due to obesity as it relates to chronic illnesses:, and acute illness. The patient's obesity increases the difficulty and complexity of medical and/or surgical interventions, management and increases the chances of poor outcome such as morbidity and mortality as well as impaired wound healing. Patient's obesity also will impact oxygenation COPD exacerbation and heart failure. Code status: Full code verified with patient DVT prophylaxis:? Enoxaparin Surrogate decision maker:? Vladimir Woods, patient's brother Time Spent With Patient Critical Care time: I spent a total of [] minutes of critical care time on this patient's care today; this time is exclusive of procedural time.
--- NOTE | 2022-08-11 15:08 | PT.IIE ---
Current Diagnoses Chronic obstructive pulmonary disease with (acute) exacerbation (08/07/22) Medical History (Last Updated 08/11/22 @ 13:37 by TORRES Rodríguez) Acute and chronic respiratory failure (ddmkd-ga-iscgydm) COPD (chronic obstructive pulmonary disease) HFrEF (heart failure with reduced ejection fraction) HLD (hyperlipidemia) Obesity Tobacco abuse, in remission Physical Therapy Inpatient Evaluation/Re-Eval M1 PT/OT-IP Prior Functional Status Start: 08/11/22 13:30 Freq: NEEDED Status: Active Protocol: Document 08/11/22 15:08 AW (Rec: 08/11/22 15:51 AW [id number]) Medical Review Prior Functional Status Medical History Reviewed Yes Communication WNL. Pt is an effective verbal communicator. Mobility and Gait Independent for household distances. Pt is able to walk short outdoor distances to get to his car or pepper picker his mail. He uses supplemental O2 ~2-3 L/min during the day with occasional increase to 4L. Pt denies falls in the past year . Activities of Daily Living and IADL's Independent. Pt drives. Social History Household Members none Living Arrangements Mobile home Number of Floors (Floors) One Floor Number of Stairs To Enter/Railing? 2 OLEG no rail Home Environment Standard Height Toilet,Tub/ Shower Home Equipment Shower Seat with Backrest Employment Status Retired Additional Social History Comment Pt lives alone in [place]. He worked at [employer] for nearly 20 years but left his job during early COVID pandemic. He has a supportive brother, Vladimir. M2 PT-IP Current Condition Start: 08/11/22 13:30 Freq: NEEDED Status: Active Protocol: Document 08/11/22 15:08 AW (Rec: 08/11/22 15:51 AW [id number]) Physical Therapy Current Condition Current Condition Evaluation Date 08/11/22 Treatment Diagnosis COPD exacerbation; difficulty in walking Onset Date 08/06/22 M3 PT-IP Subjective Start: 08/11/22 13:30 Freq: NEEDED Status: Active Protocol: Document 08/11/22 15:08 AW (Rec: 08/11/22 15:51 AW [id number]) Subjective Physical Therapy Visit Type Type Initial Evaluation Visit Start Time 14:48 Visit Stop Time 15:08 Total Visit Minutes 20 Physical Therapy Visit Comments Patient Comments Pt is willing to participate with PT Patient Goals Pt hopes to return home at discharge. Therapy Pain Assessment Pain When Pain Assessed During Mobility Pain Present Pain Present Denied Pain M4 PT-IP Mobility and Gait Start: 08/11/22 13:30 Freq: NEEDED Status: Active Protocol: Document 08/11/22 15:08 AW (Rec: 08/11/22 15:51 AW [id number]) PT-Bed Mobility Assessment Supine to Sit Supine to Sit Standby Assistance PT-Transfer Assessment Sit to and From Stand Sit to and from Stand Standby Assistance,Use of Upper Extremities Equipment Transfer Assistive Device None Orthotic/Prosthetic Devices or Brace: No Transfers Transfer Destination Bed,Chair Transfer Technique Stand Step Pivot Transfer Ability Level of Assist Standby Assistance Comments Mobility Comments Pt was lying in bed as PT arrived. SpO2 on 2L/min via NC was 94%. Pt sat up on the left side of the bed SBA as PT transferred his O2 line to portable tank. He typically uses a wearable tank. Pt stood and walked in the halls a total of 150 feet SBA. Initially, he pushed the O2 tank but then walked without external support the remaining 120 feet. On 3-4 L/min, SpO2 was stable 89-91% including during and after stair climbing. Pt returned to the room and transferred to the chair. He then transferred to sitting EOB where pt was left with call light in reach. Gait Assessment Gait Gait Assistance Required: Standby Assistance Distance (Feet) 150 Assistive Devices Assistive Device None Orthotic/Prosthetic Devices or Brace: No Gait Deviations General Gait Pattern Decreased Stride Length, Decreased Feet Clearance Factors Limiting Gait Function Factors Limiting Gait Function Decreased Activity Tolerance, Respiratory Distress Comments Gait Comments Pt walked SBA with and without external support of O2 tank. No overt LOB observed. Stair Climbing Assessment Evaluation Level of Assist On Stairs Standby Assistance Devices Stair Climbing Assistive Devices None Technique/Endurance Stair Climbing Direction Ascend and Descend Stair Climbing Technique Step Over Step Number of Steps Climbed 3 Query Text: Stair Climbing Set # Repetitions (reps) 2 Comments Stair Climbing Comments SpO2 stable 89-91% during and after stair climbing PT-Balance Assessment Sitting Balance and Reactions Static Sitting Balance Ability Normal Dynamic Sitting Balance Ability Normal Standing Balance and Reactions Static Standing Balance Ability Normal Dynamic Standing Balance Ability Good Device Used no AD M5 PT-IP Objective Assessments Start: 08/11/22 13:30 Freq: NEEDED Status: Active Protocol: Document 08/11/22 15:08 AW (Rec: 08/11/22 15:51 AW [id number]) Orientation Orientation/Cognition Level of Alertness Alert Orientation Name,Day of Week,Place, Situation Language Function Ability No Deficits Noted Safety Awareness Understands Safety Issues Memory Description No Deficits Noted Gross Range of Motion Lower Extremity ROM Assessment Within Functional Limits Strength Lower Extremity Strength Assessment Within Functional Limits Hip 4/5 - 4+/5 Knee 5/5 Ankle 5/5 DF; PF 4+/5 in sitting Sensation Assessment Sensation Gross Sensation WNL M6 PT-IP Treatment Start: 08/11/22 13:30 Freq: NEEDED Status: Active Protocol: Document 08/11/22 15:08 AW (Rec: 08/11/22 15:51 AW [id number]) Physical Therapy Treatment Education Education Provided Safety M7 PT-IP Assessment and Plan Start: 08/11/22 13:30 Freq: NEEDED Status: Active Protocol: Document 08/11/22 15:08 AW (Rec: 08/11/22 15:51 AW [id number]) PT Summary Assessment and Plan Potential Rehabilitation Potential Good Status of Condition at Evaluation Stable Summary Impairments Activity Tolerance Assessment Summary Harmeet is a 67 yo man admitted with COPD exacerbation. PLOF: Pt is independent with household mobility and short community distances without AD . He uses 2-4L/min O2 during the day at baseline. He denies history of falls. CLOF: Pt is able to ambulate 150 feet and complete stair climbing on 3- 4 L/min O2 with SpO2 stable at 89-91%. He has no overt LOB during gait and does not have significant strength deficits. Pt states he was able to quit smoking with assist from accupuncture late last year. PT recommends outpatient pulmonary rehab. Pertaining to mobility, pt is safe to discharge home. No further acute PT needs are identified. Frequency of Treatment Frequency Of Treatment Discharge Discharge Recommendations Other Discharge Recommendations pulmonary rehab Transportation Needs at Discharge Private Vehicle
[2022-08-11] MEDS: DOXAZOSIN 2 MG TABLET PO (20:17)
[2022-08-11] MEDS: ATORVASTATIN 20 MG TABLET 40 MG PO (20:18)
[2022-08-12 02:00] VITALS: O2SAT 96
[2022-08-12 05:49] VITALS: PULSE 88; RESP 22; O2SAT 94
[2022-08-12] MEDS: ALBUTEROL/IPRATROPIUM 3 ML AMPUL INH ×2 (05:49→11:38)
[2022-08-12 06:49] LABS: Add Manual Diff / Slide Review NO; Basophils Absolute Auto 0 /uL (0-100); Eosinophils Absolute Auto 100 /uL (0-450); Eosinophils Percent Auto 0.8 % (2-4); Hematocrit 39.4 % (41-53); Hemoglobin 13.2 g/dL (13.5-17.5); Lymphocytes Absolute Auto 2200 /uL (1100-4500); Lymphocytes Percent Auto 19.1 % (25-40); Mean Corpuscular HGB Conc 33.4 % (30-36); Mean Corpuscular Hemoglobin 31.7 PG (26-34); Monocytes Absolute Auto 1000 /uL (0-900); Monocytes Percent Auto 9.2 % (3-14); Neutrophils Absolute Auto 8100 /uL (1500-7000); Neutrophils Percent Auto 70.9 % (50-75); Platelet Count 253 X10^3/uL (150-400); Red Blood Cell Count 4.15 X10^6/uL (4.5-5.9); Red Cell Distribution Width 13.7 % (11.6-14.8); White Blood Cell Count 11.4 X10^3/uL (4.5-11.0)
[2022-08-12 06:57] LABS: Procalcitonin 0.06 ng/mL (<0.5)
[2022-08-12] MEDS: MAG HYDROX/ALUM/SIMETH 30 ML UDC PO (07:00)
[2022-08-12 08:00] VITALS: BP 131/84; PULSE 81; RESP 18; TEMP 35.9; O2SAT 91
[2022-08-12] MEDS: SPIRONOLACTONE 25 MG TABLET PO (08:28)
[2022-08-12] MEDS: predniSONE 20 MG TABLET 60 MG PO (08:28)
[2022-08-12] MEDS: hydroCHLOROthiazide 25 MG TABLET 12.5 MG PO (08:28)
[2022-08-12] MEDS: ENOXAPARIN 40 MG/0.4 ML SYRINGE SUBCUT (08:29)
[2022-08-12] MEDS: guaiFENesin ER 600 MG TAB 1200 MG PO (08:29)
[2022-08-12] MEDS: NEBIVOLOL 20 MG 20 EACH PO (08:29)
[2022-08-12] MEDS: IVABRADINE 5 MG 5 EACH PO (08:30)
[2022-08-12] MEDS: SODIUM CHLORIDE 0.9% FLUSH 10 ML IV (08:30)
[2022-08-12] MEDS: FAMOTIDINE 20 MG TABLET PO (08:33)
[2022-08-12] MEDS: buPROPion XL 150 MG TAB PO (08:34)
[2022-08-12] MEDS: SACUBITRIL VALSARTAN 1 EACH PO (08:35)
--- NOTE | 2022-08-12 09:23 | OT.IP.TRT ---
Current Diagnoses Chronic obstructive pulmonary disease with (acute) exacerbation (08/07/22) Occupational Therapy Treatment Note M3 OT- IP Subjective and Pain Start: 08/12/22 09:28 Freq: Status: Active Protocol: Document 08/12/22 09:15 [facility] (Rec: 08/12/22 09:32 [facility] [id number]) OT- Subjective Occupational Therapy Visit Type Type Treatment Note Visit Start Time 09:15 Visit Stop Time 09:23 Occupational Therapy Visit Comments Patient Comments Pt states looking to go home today and agreed to talk to OT regarding OT needs. Patient/Caregiver Goals TO go home. M4 OT- IP ADL's Start: 08/12/22 09:28 Freq: Status: Active Protocol: Document 08/12/22 09:15 [facility] (Rec: 08/12/22 09:32 [facility] [id number]) OT [id number] Comments OT Self-Feeding Comments Independent OT ADL-Grooming Comments OT Grooming Comments Pt states has been independent . OT ADL-Oral Care Comments Oral Care Comments Pt states has been able to do on his own. OT ADL-Dressing Comments OT Dressing Comments Pt states just takes increased time to perform. Educated pt on possible use of dressing equipment to help conserve energy. OT ADL-Bathing Comments OT Bathing Comments Pt states uses a shower chair at this time. Suggested to have grab bar for safety to help get in and out of the shower. M6 OT- IP Functional Cognition Start: 08/12/22 09:28 Freq: Status: Active Protocol: Document 08/12/22 09:15 [facility] (Rec: 08/12/22 09:32 [facility] [id number]) Cognitive Factors Limiting Selfcare Function Cognitive Ability Level of Alertness Alert Patient Orientation Name,Place,Situation Ability to Follow Commands Able to Follow Multi-Step Commands Cognitive Comments Cognitive Assessment Comments Pt appears intact. M9 OT- IP Assessment and Plan Start: 08/12/22 09:28 Freq: Status: Active Pt states to have a friend stay with his a few days at home. Able to go over energy conservation strategies with the pt, suggested to have a grab bar for the shower, and look into getting 4ww as would assist the pt with holding his O2 concentrator and not have to rely on waiting for a cart to be close by to use so able to get into the store. Pt states that he is content at his set-up now and state will just be careful. No further OT needs at this time. Pt to look at going home with a friend today. Protocol: Document 08/12/22 09:15 [facility] (Rec: 08/12/22 09:32 [facility] [id number]) OT Summary Assessment and Plan Frequency of Treatment Frequency Of Treatment Discharge Discharge Recommendations Home Equipment Needs grab bar, 4ww Transportation Needs at Discharge Private Vehicle
--- NOTE | 2022-08-12 09:40 | PM.DS.1 ---
History of Present Illness History of Present Illness Date Patient Seen: 08/12/22 Chief complaint: SOB Narrative: Patient is a 67-year-old male with history of COPD, on chronic home O2, CHF with reduced EF, hypertension, hyperlipidemia, obesity, BPH who presented to ED with complaints of shortness of breath for the previous 1-2 weeks.? He reported increasing dyspnea where he is out of breath at rest and with exertion.? He had a productive cough.? He denied fever.? He had some chest tightness prior to coming into the ED. he is usually on 2 L O2 during the day and 4 L during the night but in the 2 weeks prior to presentation, he increased the daytime O2 to 4 L. Discharge Providers Provider Date of admission: 08/07/22 00:35 Discharge Date: 08/12/22 Primary care physician: Brannon Hollins MD Consults: 08/09/22 14:50 Consult to Home Health Routine Comment: Reason For Exam: Home Health RN upon discharge 08/11/22 13:22 Consult to Discharge Planning Routine Comment: eval to go home Consult to Occupational Therapy Evaluate & Treat Comment: eval to go home Physician Instructions: Evaluate and treat Consult to Physical Therapy Evaluate & Treat Comment: eval to go home Physician Instructions: Evaluate and Treat 08/11/22 13:33 Consult to Dietitian, Adult Routine Comment: Reason For Exam: BMI 34.7 Discharge provider: Nery Snider MD Summary Hospital Course Discharge Diagnosis: Acute and chronic respiratory failure (mgfzp-eq-rwfyeaf) COPD exacerbation Concern for pneumonia Benign prostatic hypertrophy COPD (chronic obstructive pulmonary disease) HFrEF (heart failure with reduced ejection fraction) HLD (hyperlipidemia) Obesity Tobacco abuse in the past, in remission Hospital Course: Patient presented with a COPD exacerbation that had been increasing over the 2 weeks prior to presentation. There was also concern for possible early pneumonia with infiltrates appearing on chest x-ray. Patient has underlying congestive heart failure but there was no exacerbation. Patient treated with Solu-Medrol 80 mg IV b.i.d., DuoNeb q.i.d., albuterol neb as needed, Levaquin 750 mg q.d. x 5 days and Mucinex 1200 mg b.i.d. per home routine. Patient was transitioned to oral prednisone and what is consistently stable on the oral medication was discharge. Patient will be on a long taper of prednisone initiate lead being 60 mg tapering slowly each week. It would be of benefit that the patient is on prophylaxis for COPD exacerbation and will be placed on azithromycin 500 mg Thursday. Status at Discharge Cognitive/behavioral status at discharge: at baseline, oriented Functional status at discharge: independent ambulation Overall status at discharge: patient is progressing back to baseline Time Spent with Patient Time spent: Greater than 30 minutes Exam Vital Signs (past 8 hours): - 08/12/22 02:00 08/12/22 05:49 08/12/22 08:00 Temperature 96.6 F L Pulse Rate 88 81 Respiratory Rate 22 18 Blood Pressure 131/84 Pulse Oximetry 96 94 91 Oxygen Delivery Method Nasal Cannula Nasal Cannula Oxygen Flow Rate 2.5 2.5 2 Fraction of Inspired Oxygen 30 Fraction of Inspired Oxygen 30 SaO2/FiO2 Ratio 313 Oxygen Delivery Method Nasal Cannula Oxygen Flow Rate 2 Narrative Exam Narrative: General:? Very pleasant alert male, in no acute distress. HEENT:? Pupils equal, anicteric, oropharynx unremarkable Neck:? No lymphadenopathy Lungs:? Able to speak full sentences, intermittent expiratory wheezes can be cleared with deep breathing. Heart:? Normal S1 and S2, regular rate and rhythm, no murmur, gallop or rub Abdomen:? Central obesity, nondistended, nontender, no HSM Extremities:? Minimal edema bilaterally Neurological:? Affect normal, speech and thought content normal Objective Labs 08/12/22 05:38 08/11/22 05:08 Labs: Laboratory Results - last 24 hr 08/12/22 08/12/22 05:38 05:38 WBC 11.4 H RBC 4.15 L Hgb 13.2 L Hct 39.4 L MCV 95.0 MCH 31.7 MCHC 33.4 RDW 13.7 Plt Count 253 Neut % (Auto) 70.9 Lymph % (Auto) 19.1 L Clarke % (Auto) 9.2 Eos % (Auto) 0.8 L Baso % (Auto) 0.0 Neut # (Auto) 8100 H Lymph # (Auto) 2200 Clarke # (Auto) 1000 H Eos # (Auto) 100 Baso # (Auto) 0 Procalcitonin 0.06 PFSH Medical History (Updated 08/11/22 @ 13:37 by TORRES Rodríguez) Acute and chronic respiratory failure (zdaox-jl-gmrfewr) COPD (chronic obstructive pulmonary disease) HFrEF (heart failure with reduced ejection fraction) HLD (hyperlipidemia) Obesity Tobacco abuse, in remission Social History household members: none Smoking Status: Former smoker Discharge Plan Discharge Plan Patient Disposition: Home Discharge orders & Medications Prescriptions: New guaifenesin [Mucus Relief ER] 600 mg Tablet Extended Release 12hr 1,200 mg PO BID Qty: 60 0RF alum-mag hydroxide-simeth [Mag-Al Plus] 200-200-20 mg/5 mL Suspension 30 ml PO Q6HR PRN (Reason: Dyspepsia) Qty: 355 0RF prednisone 20 mg Tablet 60 mg PO DAILY Qty: 5 0RF prednisone 50 mg tablet 50 mg PO DAILY Qty: 7 0RF Rx Instructions: To be taken after 60 mg tablets finished prednisone 10 mg tablet 40 mg PO DAILY Qty: 28 0RF Rx Instructions: To be taken after 50 mg daily dose finished prednisone 10 mg tablet 30 mg PO DAILY Qty: 21 0RF Rx Instructions: To be taken after 40 mg dose is finished prednisone 20 mg tablet 20 mg PO DAILY Qty: 7 0RF Rx Instructions: To be taken after 30 mg doses finished prednisone 10 mg tablet 10 mg PO DAILY Qty: 7 0RF Rx Instructions: To be taken after 20 mg doses finished prednisone 5 mg tablet 5 mg PO DAILY Qty: 7 0RF Rx Instructions: To be taken after 10 mg doses finished prednisone 20 mg tablet 60 mg PO DAILY Qty: 7 0RF Rx Instructions: This is to put with other RX for 5 tablets of 20 mg so patient will take 60 mg daily for 4 days, needing a total of 12 tablets of 20 mg azithromycin 500 mg tablet 500 mg PO QMWF Qty: 18 0RF Rx Instructions: Via continuous medication for the patient to take Fridays. famotidine 20 mg tablet 20 mg PO BID Qty: 60 0RF Continued albuterol sulfate 2.5 mg /3 mL (0.083 %) solution for nebulization Label Comments: USE 1 VIAL IN NEBULIZER EVERY 4 HOURS NEEDED FOR WHEEZE, COUGH OR SHORTNESS OF BREATH spironolactone 25 mg tablet 25 mg PO DAILY Label Comments: TAKE 1 TABLET BY MOUTH ONCE DAILY STOP POTASSIUM albuterol sulfate 90 mcg/actuation HFA aerosol inhaler Label Comments: INHALE 2 PUFFS BY MOUTH 4 TIMES DAILY NEEDED FOR WHEEZING FOR SHORTNESS OF BREATH fluticasone propionate 50 mcg/actuation [place],Suspension 1 spray INTRANASAL BID Rx Instructions: administer into each nostril doxazosin 2 mg tablet 2 mg PO BEDTIME Label Comments: TAKE 1 TABLET BY MOUTH AT BEDTIME rosuvastatin 10 mg tablet 10 mg PO DAILY Label Comments: TAKE 1 TABLET BY MOUTH ONCE DAILY bupropion HCl 150 mg tablet extended release 24 hr 150 mg PO DAILY Label Comments: TAKE 1 TABLET BY MOUTH IN THE MORNING. START AFTER COMPLETING 75MG CAPSULE Spiriva with HandiHaler 18 mcg capsule, w/inhalation device See Rx Instructions .ROUTE .COMPLEX PRN (Reason: Bronchospasm) Label Comments: INHALE 1 CAPSULE BY MOUTH ONCE DAILY IN THE MORNING Rx Instructions: As needed and as directed by hydrochlorothiazide 12.5 mg tablet 12.5 mg PO DAILY Label Comments: TAKE 1 TABLET BY MOUTH IN THE MORNING budesonide-formoterol 160-4.5 mcg/actuation Hfa Aerosol Inhaler 2 puff INHALATION BID guaifenesin 1,200 mg Tablet Extended Release 12hr 1,200 mg PO BID nebivolol 20 mg tablet 20 mg PO DAILY Label Comments: TAKE 1 TABLET BY MOUTH ONCE DAILY IN THE MORNING aspirin 81 mg Capsule 81 mg PO DAILY Corlanor 5 mg Tablet 5 mg PO BID Rx Instructions: must administer with a meal/food Entresto 24-26 mg Tablet 1 tab PO BID Discontinued famotidine 20 mg Tablet 20 mg PO BEDTIME PRN (Reason: Heartburn) Follow up/Referrals: Brannon Hollins MD [Primary Care Provider] - Visit Report/Discharge Packet Stand Alone Forms: Patient Portal/API, Stroke Signs & Symptoms Discharge Data Primary Care Provider: Brannon Hollins
[2022-08-12 10:00] VITALS: O2SAT 91
[2022-08-12] MEDS: BUDESONIDE 0.5 MG/2 ML NEB INH (11:38)
[2022-08-12 11:43] VITALS: PULSE 82; RESP 20; O2SAT 95
--- NOTE | 2022-08-12 13:33 | CM.DPC ---
CM Discharge Planning Note 08/12/2022 CM was alerted that patient is medically ready for discharge. He has arranged for a friend to pick him upon later this afternoon. Home Health referral had been placed to [facility] by prior CM. CM spoke with [facility] and updated that patient will discharge home today. They anticipate that services will begin on Thursday, 08/15. Plan: Patient to discharge home this afternoon with Home Health arranged through [facility], anticipated start on Tuesday 08/15 KELSIE Ramsey, DIESEL ENGINE ENGINEER
[2022-08-12 14:00] VITALS: O2SAT 96
--- NOTE | 2022-08-12 14:56 | PC.NURSE ---
Addendum entered by Mary Mccarthy R.N. 08/12/22 15:05: Patient transportation arrives to take patient home at 1445. Original Note: Pt is A&OX3, VSS, on baseline level of 02 (2 LNC) afebrile. He denies pain this a.m. but c/o some heartburn, acid indigestion which he states is improved with prn famotidine. He is medically cleared for discharge home today with oral steroids. Patient verbalizes understanding of steroid tapering , antibiotic dosing, famotidine as well as follow up appointments.His transportation arrives after lunch at approximately 1345 to escort him home. He is assisted by w/ch and placed on his personal portable 02 tank at 2 LNC and transported with all of his belongings and home medications to the Emergency Room entrance for tranpsort home in a private vehicle with friend to discharge home.
== END 2022-08-12 14:45 | disposition home health service (06) | DRG 190 ==
LOC: ED 08-07 00:32 → ICU 08-07 10:18 → AC 08-07 17:35
PROVIDERS: Internal Medicine; Nurse Practitioner Family; Admitting Provider Internal Medicine; Emergency Provider Emergency Medicine; Family Provider Family Medicine; PCP Internal Medicine; Visit Provider Internal Medicine
DX: J44.1 Chronic obstructive pulmonary disease with (acute) exacerbation (principal); J18.9 Pneumonia, unspecified organism; J96.21 Acute and chronic respiratory failure with hypoxia; I50.22 Chronic systolic (congestive) heart failure; N40.0 Benign prostatic hyperplasia without lower urinary tract symptoms; E86.0 Dehydration; I11.0 Hypertensive heart disease with heart failure; E78.5 Hyperlipidemia, unspecified; E66.9 Obesity, unspecified; Z68.34 Body mass index [BMI] 34.0-34.9, adult; Z87.891 Personal history of nicotine dependence; Z99.81 Dependence on supplemental oxygen
CPT/HCPCS: 0241U; 36415; 71045; 80048; 80053; 82550; 82553; 83036; 83735; 83880; 84145; 84484; 85025; 85610; 85730; 87040; 87797; 93005; 94640; 94760; 94762; 96365; 97162; 97530; 99285; A9270; J1650; J1956; J2930; J7613

== ENCOUNTER → 2022-12-18 12:50 | Outpatient (CLI) | payer MEDICARE, MEDICAID, SELFPAY ==
[2022-08-07 00:49] VITALS: BMI 34.0
--- NOTE | 2022-12-18 | DI.ECHO.S_ITS ---
[facility]---------+ [facility] +---------+ : : [address] [place] : : : : [id number] : : : : Phone: [phone]+ Echocardiogram Report + + :Name: GABRIEL CHEEMA Study Date: 12/18/2022 Height: 68 in : :[facility] ReadingLocation: Weight: 250 lb : : Gender: Male BSA: 2.2 m2 : :: 1955 Age: 67 yrs BP: 134/79 mmHg: :Reason For Study: CARDIOMYOPATHIES : :Ordering Physician: VIKAS, : :JAIME Performed By: Guerda Merchant : :Referring: JAIME TRAVIS : + + Interpretation Summary 1) Normal left ventricular thickness with mildly reduced systolic function (EF 45-50%). 2) Normal right ventricular size and function. 3) No significant valvular abnormalities. 4) The ascending aorta is mildly enlarged at 4.1cm 5) Compared to the Echo done 06/25/2022, LVEF has improved from 30-35% to 45- 50% on this study. Procedure: A two-dimensional transthoracic echocardiogram with color flow and Doppler was performed. The study quality was technically adequate. Comparison is made with the echocardiogram of 06/25/2022. The patient was in sinus bradycardia with heart rates between 55-61 bpm during the exam. Left Ventricle: The left ventricle is normal in size and wall thickness. The ejection fraction is estimated to be 45-50%. There is mild global hypokinesis of the left ventricle. Right Ventricle: The right ventricle is normal in size and function. Atria: The left atrial size is normal. Right atrial size is normal. There is no Doppler evidence for an interatrial shunt. Mitral Valve: The mitral valve is normal in structure and function. There is trace mitral regurgitation. Aortic Valve: The aortic valve is trileaflet. The aortic valve opens well. There is no aortic valve stenosis. There is trace aortic regurgitation. Tricuspid Valve: The tricuspid valve is normal in structure and function. There is trace tricuspid regurgitation. Pulmonary artery pressures cannot be estimated because of the lack of a measurable TR jet velocity. Pulmonic Valve: The pulmonic valve leaflets are thin and pliable; valve motion is normal. There is mild pulmonic regurgitation. Great Vessels: The aortic root is normal size. The ascending aorta is mildly enlarged. The IVC is of normal diameter and collapses greater than 50% with a sniff. This suggests a low right atrial pressure of 3 mm Hg. Pericardium/ Pleura There is no pericardial effusion. There is no pleural effusion. MMode/2D Measurements & Calculations LVIDd: 5.3 cm LVOT diam: 2.1 cm LVIDs: 4.0 cm Ao root diam: 3.4 cm FS: 24.9 % asc Aorta Diam: 4.1 cm EPSS: 1.1 cm Ao Arch Diam (Prox Trans): 3.8 cm IVSd: 0.72 cm LVPWd: 0.82 cm LV shannon. diameter/BSA (cm/m^2): 2.3 LV sys. diameter/BSA (cm/m^2): 1.8 LA A2 area: 20.1 cm2 RA long axis: 5.7 cm LA A4 area: 17.6 cm2 RA area: 18.2 cm2 LA length (vol): 5.4 cm RA vol: 49.1 ml LA vol: 56.0 ml RA : 21.9 ml/m2 LA vol index: 24.9 ml/m2 IVC diam: 2.0 cm RVD1 (basal): 3.9 cm RVD2 (mid): 3.0 cm TAPSE: 2.3 cm Doppler Measurements & Calculations Ao V2 max: 143.4 cm/sec LVOT Max Filiberto: 93.8 cm/sec Ao V2 mean: 101.9 cm/sec LV V1 max P.5 mmHg Ao max P.2 mmHg LV V1 VTI: 21.2 cm Ao mean P.6 mmHg THI(I,D): 2.5 cm2 Ao V2 VTI: 30.2 cm THI(V,D): 2.3 cm2 sev ratio: 0.70 THI indexed to BSA (cm^2/m^2): 1.1 MV E max filiberto: 69.7 cm/sec PA V2 max: 116.1 cm/sec MV A max filiberto: 83.3 cm/sec PA V2 mean: 80.5 cm/sec MV E/A: 0.84 PA mean P.9 mmHg Med Peak E' Filiberto: 5.9 cm/sec PA pr(Accel): 39.6 mmHg E/E' med: 11.8 Lat Peak E' Filiberto: 9.0 cm/sec E/E' lat: 7.8 E/e' average: 9.8 MV dec time: 0.26 sec SVLVOT): 74.5 ml Reading Physician:04:57 PM
== END ==
PROVIDERS: Family Provider Family Medicine; PCP Internal Medicine; Referring Provider Internal Medicine Cardiovascular Disease; Visit Provider Internal Medicine Cardiovascular Disease
DX: I50.22 Chronic systolic (congestive) heart failure (principal); I42.8 Other cardiomyopathies; I51.7 Cardiomegaly
CPT/HCPCS: 93306

== ENCOUNTER 2023-02-08 20:02 | Emergency (ER) | payer MEDICARE, MEDICAID, SELFPAY ==
[2022-08-07 00:49] VITALS: BMI 34.0
[2023-02-08] VITALS (9 sets, daily range): BP systolic 93–124; BP diastolic 64–74; PULSE 68–81; RESP 18; TEMP 36.2–36.7; O2SAT 88–93; BMI 37.7
--- NOTE | 2023-02-08 20:23 | DI.RAD.S_ITS ---
PROCEDURE: XR HIP W PEL IF DONE BILAT 2V INDICATIONS: fall with pain TECHNIQUE: AP pelvis with bilateral AP and lateral views of the hips. COMPARISON: None. FINDINGS: Bones: No fractures or dislocations. Pelvic ring appears intact. There is mild axial joint space narrowing and collar osteophytosis in the hips bilaterally. No suspicious bony lesions. Soft tissues: The visualized bowel gas pattern is normal. No suspicious soft tissue calcifications. IMPRESSION: 1. No fracture or dislocation. Dictated by: Matthias Wright M.D. on 02/08/2023 at 22:35 Approved by: Matthias Wright M.D. on 02/08/2023 at 22:36
--- NOTE | 2023-02-08 20:23 | DI.RAD.S_ITS ---
PROCEDURE: XR LUMBAR SPINE 2-3V INDICATIONS: fall with pain TECHNIQUE: 3 views of the lumbar spine were acquired. COMPARISON: None. FINDINGS: Bones: 5 tjs-tus-bxfkroo vertebrae are present. There is a mild rightward curvature of the thoracolumbar spine centered at L1-L2. There is minimal retrolisthesis at L2-L3 and L3-L4. No vertebral body compression fractures. No definite acute fractures. There is multilevel qivz-im-bshwixem degenerative disc disease throughout the lumbar spine as well as mild facet arthropathy in the lower lumbar spine. No suspicious bony lesions. Soft tissues: Overlying bowel gas pattern is normal. No suspicious soft tissue calcifications. IMPRESSION: 1. No definite acute fracture or subluxation. Dictated by: Matthias Wright M.D. on 02/08/2023 at 22:04 Approved by: Matthias Wright M.D. on 02/08/2023 at 22:10
--- NOTE | 2023-02-08 21:30 | PC.NURSE ---
pt c/o hip and back pain after falling, no obvious deformities noted no obvious injuries
--- NOTE | 2023-02-08 23:41 | ED_ITS ---
HPI - Fall General Chief Complaint: Fall Stated Complaint: GLF T-0 Time Seen by Provider: 02/08/23 20:22 Source: patient Mode of arrival: EMS History of Present Illness HPI Narrative: 67-year-old male former smoker presents with family in the chief complaint of low back pain after a fall. He states that he was in his normal state of health and denies any prodromal symptoms such as dizziness, weakness or lightheadedness. He states that he was ambulating at home and tripped over the threshold of his door falling backwards landing on his lower back. He denies any head neck or upper back pain. He denies any use of blood thinners. He has no chest pain or trouble breathing. Denies nausea, vomiting or diarrhea. He states he has pain across his lower back that seems to be worse when he moves and improves with rest. He denies radiation of pain. He denies any loss of control of bowel or bladder. He denies any numbness, tingling or weakness in his lower extremities Related Data Home Medications Medication Instructions Recorded Confirmed albuterol sulfate 2.5 mg/3 mL 08/07/22 08/07/22 (0.083 %) solution for nebulization albuterol sulfate 90 mcg/actuation 08/07/22 08/07/22 aerosol inhaler aspirin 81 mg capsule 81 mg PO DAILY 08/07/22 08/07/22 budesonide-formoterol HFA 160 2 puff inhalation BID 08/07/22 08/07/22 mcg-4.5 mcg/actuation aerosol inhaler bupropion HCl 150 mg 24 hr tablet, 150 mg PO DAILY 08/07/22 08/07/22 extended release doxazosin 2 mg tablet 2 mg PO BEDTIME 08/07/22 08/07/22 fluticasone propionate 50 1 spray intranasal BID 08/07/22 08/07/22 mcg/actuation nasal spray,suspension guaifenesin 1,200 mg tablet, 1,200 mg PO BID 08/07/22 08/07/22 extended release 12 hr hydrochlorothiazide 12.5 mg tablet 12.5 mg PO DAILY 08/07/22 08/07/22 ivabradine 5 mg tablet (Corlanor) 5 mg PO BID 08/07/22 08/07/22 nebivolol 20 mg tablet 20 mg PO DAILY 08/07/22 08/07/22 rosuvastatin 10 mg tablet 10 mg PO DAILY 08/07/22 08/07/22 sacubitril 24 mg-valsartan 26 mg 1 tab PO BID 08/07/22 08/07/22 tablet (Entresto) spironolactone 25 mg tablet 25 mg PO DAILY 08/07/22 08/07/22 tiotropium bromide 18 mcg capsule See Rx Instructions .Route 08/07/22 08/09/22 with inhalation device (Spiriva .COMPLEX PRN Bronchospasm with HandiHaler) Previous Rx's Medication Instructions Recorded aluminum-mag hydroxide-simethicone 30 ml PO Q6HR PRN Dyspepsia #355 mL 08/12/22 200 mg-200 mg-20 mg/5 mL oral susp (Mag-Al Plus) azithromycin 500 mg tablet 500 mg PO QMWF #18 tabs 08/12/22 famotidine 20 mg tablet 20 mg PO BID #60 tabs 08/12/22 guaifenesin 600 mg tablet, 1,200 mg PO BID #60 tabs 08/12/22 extended release 12 hr (Mucus Relief ER) prednisone 10 mg tablet 10 mg PO DAILY #7 tabs 08/12/22 prednisone 10 mg tablet 30 mg PO DAILY #21 tabs 08/12/22 prednisone 10 mg tablet 40 mg PO DAILY #28 tabs 08/12/22 prednisone 20 mg tablet 20 mg PO DAILY #7 tabs 08/12/22 prednisone 20 mg tablet 60 mg PO DAILY #5 tabs 08/12/22 prednisone 20 mg tablet 60 mg PO DAILY #7 tabs 08/12/22 prednisone 5 mg tablet 5 mg PO DAILY #7 tabs 08/12/22 prednisone 50 mg tablet 50 mg PO DAILY #7 tabs 08/12/22 cyclobenzaprine 10 mg tablet 10 mg PO TID PRN muscle spasm #14 02/08/23 tabs hydrocodone 5 mg-acetaminophen 325 1 tab PO Q4-6H PRN pain #10 tabs 02/08/23 mg tablet lidocaine 5 % topical patch 1 patch topical DAILY #15 ea 02/08/23 (Lidoderm) Allergies Allergy/AdvReac Type Severity Reaction Status Date / Time cephalexin [From KEFLEX] Allergy Intermediate Hives Verified 08/08/22 15:39 Penicillins [PENICILLINS] Allergy Intermediate Hives Verified 08/08/22 15:39 Review of Systems Review of Systems Narrative: GENERAL: Denies chills, fatigue, malaise, fever, sweats. HEENT: Denies sinus pain, ear pain, sore throat, difficulty swallowing, dizziness. RESPIRATORY: Denies dyspnea, cough, wheezing, hemoptysis, sputum. CARDIOVASCULAR: Denies chest pain, palpitations, orthopnea, edema, GASTROINTESTINAL: Denies nausea, vomiting, abdominal pain, diarrhea, constipation, melena. : Denies dysuria, frequency, incontinence, hematuria, urinary retention. MUSCULOSKELETAL:see HPI SKIN: Denies rash, skin lesions, or other NEUROLOGIC: Denies weakness, headache, numbness, change in speech, confusion, seizures, incoordination. PSYCHIATRIC: No concerning psychosocial issues. 12 point review of systems is negative except for those stated above Patient History Medical History Acute and chronic respiratory failure ([id number]) COPD (chronic obstructive pulmonary disease) HFrEF (heart failure with reduced ejection fraction) HLD (hyperlipidemia) Obesity Tobacco abuse, in remission Social History household members: none Smoking Status: Former smoker Smoking Status: Former smoker tobacco type: cigarettes Substance Use Type: does not use Exam Narrative Exam Narrative: GENERAL: [67] year old patient appears stated age. Well-developed patient, in mild distress. HEAD: Atraumatic. Normocephalic. EYES: Pupils equal round and reactive. Extraocular motions intact. No scleral icterus. No injection or drainage. ENT: Nose without bleeding, purulent drainage. Throat without erythema, tonsillar hypertrophy or exudate. Airway patent. NECK: Trachea midline. Non tender CARDIOVASCULAR: Regular rate and rhythm without murmurs, gallops, or rubs. RESPIRATORY: Clear to auscultation. Breath sounds equal bilaterally. No wheezes, rales, or rhonchi. GASTROINTESTINAL: Abdomen soft, non-tender, nondistended. EXTREMITIES: No edema or joint tenderness. BACK: crystalizer tender but free of any obvious external abnormalities. Patient exam notes decreased range of motion and muscle spasm, but no CVA tenderness, or vertebral point tenderness. There are no symptoms of cauda equina such as saddle anesthesia, and decreased reflexes, decreased sensation or strength. NEURO: AOx3. SKIN: No rash or erythema of visible areas Initial Vital Signs Initial Vital Signs: Vital Signs Temperature 97.1 F L 02/08/23 20:16 Pulse Rate 77 02/08/23 20:16 Respiratory Rate 18 02/08/23 20:16 Pulse Oximetry 89 L 02/08/23 20:16 Oxygen Delivery Method Nasal Cannula 02/08/23 20:16 Oxygen Flow Rate 2 02/08/23 20:16 Course Orders Ordered: ED Orders 02/08/23 20:23 XR hip w pel if done BILAT 2V Stat XR lumbar spine 2-3V Stat Discontinued Medications Hydrocodone Bitart/Acetaminophen (Hydrocodone/Acet 5/325 Prepack) 1 bottle MISC SEEINSTR ONE Stop: 02/08/23 23:47 Last Admin: 02/09/23 00:00 Dose: 1 bottle Documented By: DEBORAH Cyclobenzaprine HCl (Cyclobenzaprine 10 Mg Prepack) 1 bottle MISC SEEINSTR ONE Stop: 02/08/23 23:47 Last Admin: 02/08/23 23:59 Dose: 1 bottle Documented By: DEBORAH Lidocaine (Lidocaine Patch 1 Each Adh..Patch) 1 each TOP NOW ONE Stop: 02/08/23 23:47 Last Admin: 02/09/23 00:00 Dose: 1 each Documented By: DEBORAH Vital Signs Vital signs: Vital Signs - 8 hr 02/08/23 20:16 02/08/23 21:33 02/08/23 21:45 Temperature 97.1 F L 98.1 F Pulse Rate 77 69 68 Respiratory Rate 18 18 Blood Pressure 93/66 Pulse Oximetry 89 L 88 L 91 Oxygen Delivery Method Nasal Cannula Nasal Cannula Oxygen Flow Rate 2 2 02/08/23 22:00 02/08/23 22:01 02/08/23 22:01 Temperature Pulse Rate 71 70 Respiratory Rate Blood Pressure 103/64 Pulse Oximetry 91 93 Oxygen Delivery Method Oxygen Flow Rate 02/08/23 22:30 02/08/23 22:30 02/08/23 23:00 Temperature Pulse Rate 75 Respiratory Rate Blood Pressure 114/72 106/69 Pulse Oximetry 93 Oxygen Delivery Method Oxygen Flow Rate 02/08/23 23:00 02/08/23 23:30 02/08/23 23:31 Temperature Pulse Rate 75 81 Respiratory Rate Blood Pressure 124/74 Pulse Oximetry 91 93 Oxygen Delivery Method Oxygen Flow Rate 02/08/23 23:31 Temperature Pulse Rate 79 Respiratory Rate Blood Pressure Pulse Oximetry 93 Oxygen Delivery Method Oxygen Flow Rate MDM - Fall MDM Narrative Medical decision making narrative: [67] year old patient presents with ground level fall and back pain Multiple etiologies for patient's symptoms considered including, but not limited to: [Contusion versus fracture versus other] Prior Charts reviewed in our EMR Primary Historian: patient Imaging reviewed: Bilateral hip and pelvis x-ray as well as lumbar x-ray without evidence of fracture or dislocation Patient's history and physical exam are reassuring, no use of blood thinners, imaging is reassuring. Patient given Lidoderm, Flexeril and hydrocodone with prescriptions Findings and discharge diagnosis discussed with patient/family followed by verbalization of understanding Return precautions discussed with patient/family whom verbalize understanding of diagnosis and plan Discharge Plan Departure Patient Disposition: Home Clinical Impression: Lumbar paraspinal muscle spasm Instructions: How to Prevent Falls Activity Restrictions/Additional Instructions: *You have been diagnosed with [low back pain. As we discussed your history and physical exam are reassuring and the x-ray shows no evidence of fracture or dislocation.] *What to do: *Please continue to take your regular medications as directed. [x ] New medication prescriptions sent to your pharmacy: [ [facility]] [ ] New medication written as a paper prescription [ ] No new medications given *Please follow up with your primary care provider in 2-3 days, call for an appointment. Let them know you were seen in the Emergency Department and that we ask that you be seen in follow up. We will electronically transmit a record of today's note if your PCP is in our system *If you do not have a primary care provider please contact the [facility] Resource line at [phone]. They will ask some questions about your medical history and help get you set up with a doctor in the community. *Return to Emergency Department if you should have any new, worsening or concerning symptoms, such as [fever greater than 101 F, shaking chills, worsening pain, persistent vomiting or other bothersome symptoms] You have been prescribed a short course of narcotic medications. These are potentially dangerous and addictive medications that should be used carefully. While on these medications you cannot drive or operate heavy machinery. Additionally, you cannot sign legal documents or perform any duties such as this. 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 Please understand that we cannot provide further refills of narcotics or controlled substances through the ED and your pain management will need to be through your Primary Care Provider Prescriptions: New cyclobenzaprine 10 mg tablet 10 mg PO TID PRN (Reason: muscle spasm) Qty: 14 0RF hydrocodone-acetaminophen 5-325 mg tablet 1 tab PO Q4-6H PRN (Reason: pain) Qty: 10 0RF lidocaine [Lidoderm] 5 % adhesive patch,medicated 1 patch TOP DAILY Qty: 15 0RF Rx Instructions: leave on most painful area for 12 hrs No Action albuterol sulfate 2.5 mg /3 mL (0.083 %) solution for nebulization Patient Comments: USE 1 VIAL IN NEBULIZER EVERY 4 HOURS NEEDED FOR WHEEZE, COUGH OR SHORTNESS OF BREATH spironolactone 25 mg tablet 25 mg PO DAILY Patient Comments: TAKE 1 TABLET BY MOUTH ONCE DAILY STOP POTASSIUM albuterol sulfate 90 mcg/actuation HFA aerosol inhaler Patient Comments: INHALE 2 PUFFS BY MOUTH 4 TIMES DAILY NEEDED FOR WHEEZING FOR SHORTNESS OF BREATH fluticasone propionate 50 mcg/actuation [place],Suspension 1 spray INTRANASAL BID Rx Instructions: administer into each nostril doxazosin 2 mg tablet 2 mg PO BEDTIME Patient Comments: TAKE 1 TABLET BY MOUTH AT BEDTIME rosuvastatin 10 mg tablet 10 mg PO DAILY Patient Comments: TAKE 1 TABLET BY MOUTH ONCE DAILY bupropion HCl 150 mg tablet extended release 24 hr 150 mg PO DAILY Patient Comments: TAKE 1 TABLET BY MOUTH IN THE MORNING. START AFTER COMPLETING 75MG CAPSULE Spiriva with HandiHaler 18 mcg capsule, w/inhalation device See Rx Instructions .ROUTE .COMPLEX PRN (Reason: Bronchospasm) Patient Comments: INHALE 1 CAPSULE BY MOUTH ONCE DAILY IN THE MORNING Rx Instructions: As needed and as directed by hydrochlorothiazide 12.5 mg tablet 12.5 mg PO DAILY Patient Comments: TAKE 1 TABLET BY MOUTH IN THE MORNING budesonide-formoterol 160-4.5 mcg/actuation Hfa Aerosol Inhaler 2 puff INHALATION BID guaifenesin 1,200 mg Tablet Extended Release 12hr 1,200 mg PO BID nebivolol 20 mg tablet 20 mg PO DAILY Patient Comments: TAKE 1 TABLET BY MOUTH ONCE DAILY IN THE MORNING aspirin 81 mg Capsule 81 mg PO DAILY Corlanor 5 mg Tablet 5 mg PO BID Rx Instructions: must administer with a meal/food Entresto 24-26 mg Tablet 1 tab PO BID guaifenesin [Mucus Relief ER] 600 mg Tablet Extended Release 12hr 1,200 mg PO BID Qty: 60 0RF alum-mag hydroxide-simeth [Mag-Al Plus] 200-200-20 mg/5 mL Suspension 30 ml PO Q6HR PRN (Reason: Dyspepsia) Qty: 355 0RF prednisone 20 mg Tablet 60 mg PO DAILY Qty: 5 0RF prednisone 50 mg tablet 50 mg PO DAILY Qty: 7 0RF Rx Instructions: To be taken after 60 mg tablets finished prednisone 10 mg tablet 40 mg PO DAILY Qty: 28 0RF Rx Instructions: To be taken after 50 mg daily dose finished prednisone 10 mg tablet 30 mg PO DAILY Qty: 21 0RF Rx Instructions: To be taken after 40 mg dose is finished prednisone 20 mg tablet 20 mg PO DAILY Qty: 7 0RF Rx Instructions: To be taken after 30 mg doses finished prednisone 10 mg tablet 10 mg PO DAILY Qty: 7 0RF Rx Instructions: To be taken after 20 mg doses finished prednisone 5 mg tablet 5 mg PO DAILY Qty: 7 0RF Rx Instructions: To be taken after 10 mg doses finished prednisone 20 mg tablet 60 mg PO DAILY Qty: 7 0RF Rx Instructions: This is to put with other RX for 5 tablets of 20 mg so patient will take 60 mg daily for 4 days, needing a total of 12 tablets of 20 mg azithromycin 500 mg tablet 500 mg PO QMWF Qty: 18 0RF Rx Instructions: Via continuous medication for the patient to take Fridays. famotidine 20 mg tablet 20 mg PO BID Qty: 60 0RF Referrals: Brannon Hollins MD [Primary Care Provider] - Stand Alone Forms: Patient Portal/API
--- NOTE | 2023-02-08 23:41 | PC.NURSE ---
pt wanting pain meds, Dr Kruse informed
--- NOTE | 2023-02-08 23:42 | PC.NURSE ---
Dr Kruse in to see pt
[2023-02-08] MEDS: CYCLOBENZAPRINE 10 MG PREPACK 1 BOTTLE MISC (23:59)
[2023-02-09] MEDS: HYDROCODONE/ACET 5/325 PREPACK 1 BOTTLE MISC
[2023-02-09] MEDS: LIDOCAINE PATCH 1 EACH ADH..PATCH TOP
== END 2023-02-09 00:02 | disposition home or self-care (01) ==
PROVIDERS: Emergency Provider Emergency Medicine; Family Provider Family Medicine; PCP Internal Medicine
DX: M62.830 Muscle spasm of back (principal); M54.50 Low back pain, unspecified; M25.552 Pain in left hip; M25.551 Pain in right hip; W18.30XA Fall on same level, unspecified, initial encounter
CPT/HCPCS: 72100; 73521; 99283; 99284

== ENCOUNTER → 2023-12-15 10:18 | Outpatient (CLI) | payer MEDICARE, SELFPAY ==
[2022-08-07 00:49] VITALS: BMI 34.0
--- NOTE | 2023-12-15 10:19 | DI.ECHO.S_ITS ---
[facility] : : [id number] : [place] : : [id number] : : Phone: [phone] Echocardiogram Report + + :Name: GABRIEL CHEEMA Study Date: 12/15/2023 Height: 68.5 in: :[facility] ReadingLocation: Weight: 230 lb : : Gender: Male BSA: 2.2 m2 : :: 1955 Age: 68 yrs BP: 108/78 mmHg: :Reason For Study: SYSTOLIC HEART FAILURE : :Ordering Physician: VIKAS, : :JAIME Performed By: Guerda Merchant : :Referring: JAIME TRAVIS : + + Interpretation Summary 1) Normal left ventricular thickness, size and systolic function (EF 55-60%). 2) Normal right ventricular size and function. 3) No significant valvular abnormalities. 4) The ascending aorta is mildly enlarged at 4.0cm. 5) Compared to the Echo done 12/18/2022, LVEF has improved slightly from 45-50% to 55-60% on this study. Procedure: A two-dimensional transthoracic echocardiogram with color flow and Doppler was performed. The study quality was technically adequate. Comparison is made with the echocardiogram of 12/18/2022. The patient was in sinus rhythm with heart rates between 69-85 bpm during the exam. Left Ventricle: The left ventricle is normal in size and wall thickness. The ejection fraction is estimated to be 55-60%. There are no focal wall motion abnormalities. Right Ventricle: The right ventricle is normal in size and function. Atria: The left atrial size is normal. Right atrial size is normal. There is no Doppler evidence for an interatrial shunt. Mitral Valve: The mitral valve leaflets appear normal. There is no evidence of stenosis, fluttering, or prolapse. There is no mitral regurgitation noted. Aortic Valve: The aortic valve is trileaflet. The aortic valve opens well. There is no aortic valve stenosis. No aortic regurgitation is present. Tricuspid Valve: The tricuspid valve is normal in structure and function. There is trace tricuspid regurgitation. Pulmonic Valve: The pulmonic valve leaflets are thin and pliable; valve motion is normal. There is mild pulmonic regurgitation. Great Vessels: The aortic root is normal size. The ascending aorta is mildly enlarged. The IVC is of normal diameter and collapses greater than 50% with a sniff. This suggests a low right atrial pressure of 3 mm Hg. Pericardium/ Pleura There is no pericardial effusion. There is no pleural effusion. MMode/2D Measurements & Calculations LVIDd: 5.1 cm LVOT diam: 2.1 cm LVIDs: 3.5 cm Ao root diam: 3.5 cm FS: 32.2 % asc Aorta Diam: 4.0 cm IVSd: 0.80 cm LVPWd: 0.97 cm LV shannon. diameter/BSA (cm/m^2): 2.4 LV sys. diameter/BSA (cm/m^2): 1.6 LA A2 area: 15.9 cm2 RA long axis: 5.2 cm LA A4 area: 16.6 cm2 RA area: 15.7 cm2 LA length (vol): 5.1 cm RA vol: 40.1 ml LA vol: 43.9 ml RA : 18.4 ml/m2 LA vol index: 20.1 ml/m2 IVC diam: 2.0 cm RVD1 (basal): 2.8 cm RVD2 (mid): 2.3 cm TAPSE: 3.2 cm Doppler Measurements & Calculations Ao V2 max: 154.6 cm/sec LVOT Max Filiberto: 104.1 cm/sec Ao V2 mean: 112.3 cm/sec LV V1 max P.3 mmHg Ao max P.6 mmHg LV V1 VTI: 22.3 cm Ao mean P.5 mmHg THI(I,D): 2.5 cm2 Ao V2 VTI: 31.2 cm THI(V,D): 2.3 cm2 sev ratio: 0.71 THI indexed to BSA (cm^2/m^2): 1.1 MV E max filiberto: 66.4 cm/sec PA V2 max: 130.2 cm/sec MV A max filiberto: 89.8 cm/sec PA V2 mean: 88.9 cm/sec MV E/A: 0.74 PA mean P.5 mmHg Med Peak E' Filiberto: 6.6 cm/sec PA pr(Accel): 55.0 mmHg E/E' med: 10.1 Lat Peak E' Filiberto: 8.0 cm/sec E/E' lat: 8.3 E/e' average: 9.2 MV dec time: 0.28 sec SV([facility]): 77.5 ml Reading Physician:[id number] PM
== END ==
PROVIDERS: Family Provider Family Medicine; PCP Internal Medicine; Referring Provider Internal Medicine Cardiovascular Disease; Visit Provider Internal Medicine Cardiovascular Disease
DX: I37.1 Nonrheumatic pulmonary valve insufficiency (principal); I77.89 Other specified disorders of arteries and arterioles; I50.22 Chronic systolic (congestive) heart failure; I42.8 Other cardiomyopathies
CPT/HCPCS: 93306

== ENCOUNTER 2024-03-09 14:15 | Outpatient (RCR) | payer MEDICARE, SELFPAY ==
[2022-08-07 00:49] VITALS: BMI 34.0
== END 2024-03-09 16:15 ==
LOC: PUL 14:15
PROVIDERS: Family Provider Family Medicine; PCP Internal Medicine; Referring Provider Internal Medicine Critical Care Medicine; Visit Provider Internal Medicine Critical Care Medicine
DX: J44.9 Chronic obstructive pulmonary disease, unspecified (principal)
CPT/HCPCS: 94625; 94626